=== PATIENT | female | born 1955 | race Caucasian/White ===

== ENCOUNTER 2021-09-27 19:34 | Inpatient (IN) | payer MEDICARE ==
[~2021-09-27] VITALS: Ht 172.7 cm; Wt 99.3 kg
[2021-09-27] MEDS ORDERED: ACETAMINOPHEN 650 MG SUPP.RECT. PR ONE (19:45)
[2021-09-27] MEDS ORDERED: IV NORMAL SALINE 1000ML BAG 1,000 ML IV ONE ×2 (19:45→20:15)
[2021-09-27 20:07] LABS: BASO % 0 % (0-3); EOS % 0 % (0-3); HEMATOCRIT 37.5 % (36.0-47.0); HEMOGLOBIN 12.7 g/dL (12.0-15.5); LYMPH % 5 % (24-48); MEAN CORPUSCULAR HEMOGLOBIN 28 pg (25-35); MEAN CORPUSCULAR HGB CONC 34 g/dL (31-37); MEAN CORPUSCULAR VOLUME 83 fL (79-100); MONO # 0.9 x10^3/uL (0.0-1.1); MONO % 4 % (0-9); NEUT # 19.3 x10^3/uL (1.8-7.7); NEUT % 91 % (31-73); PLATELET COUNT 291 x10^3/uL (140-400); RED BLOOD COUNT 4.51 x10^6/uL (3.50-5.40); RED CELL DISTRIBUTION WIDTH 15.1 % (11.5-14.5); WHITE BLOOD COUNT 21.2 x10^3/uL (4.0-11.0)
[2021-09-27] MEDS ORDERED: PIPERACILLIN/TAZOBACTAM 3.375 GM in IV NORMAL SALINE 50ML 50 ML IV ONE (20:15)
[2021-09-27] MEDS ORDERED: PIPERACILLIN/TAZOBACTAM 4.5 GM in IV NORMAL SALINE 100ML 100 ML IV ONE (20:15)
[2021-09-27] MEDS ORDERED: VANCOMYCIN PER PHARMACY MC PRN (20:15)
[2021-09-27 20:19] LABS: PROTHROMBIN TIME PATIENT 16.3 SEC (11.7-14.0)
[2021-09-27 20:27] LABS: ACETAMIN < 2 mcg/ml (10-30); SALIC 1.1 mg/dL (2.8-20.0)
[2021-09-27 20:28] LABS: ETHANOL < 10 mg/dL (0-10)
[2021-09-27 20:34] LABS: CALCIUM 9.1 mg/dL (8.5-10.1); CREATININE 0.8 mg/dL (0.6-1.0); POTASSIUM 3.6 mmol/L (3.5-5.1)
[2021-09-27 20:35] LABS: % BANDS 3 % (0-9); % LYMPHS 6 % (24-48); % MONOS 4 % (0-10); % SEGS 87 % (35-66); PLT ESTIMATE ADEQUATE (ADEQUATE); TOXIC GRANULATION SLIGHT
[2021-09-27 20:39] LABS: ALBUMIN 3.4 g/dL (3.4-5.0); ALBUMIN/GLOBULIN RATIO 0.9 (1.0-1.7); MAGNESIUM 2.2 mg/dL (1.8-2.4); PHOSPHORUS 3.6 mg/dL (2.6-4.7); TOTAL BILIRUBIN 0.5 mg/dL (0.2-1.0); TOTAL PROTEIN 7.4 g/dL (6.4-8.2)
[2021-09-27 20:40] LABS: BILIRUBIN,URINE NEGATIVE (NEG); CLARITY,URINE CLEAR; COLOR,URINE YELLOW; NITRITE,URINE NEGATIVE (NEG); PH,URINE 7.5 (<5.0-8.0); PROTEIN,URINE 30 mg/dL (NEG-TRACE)
--- NOTE | 2021-09-27 20:44 | RAD ---
Examination/views: Single view of the chest, 3 views of the left shoulder, 2 views of the left humeru s, 2 views of the left elbow, 2 views of the left forearm and 3 views of the left arm. COMPARISON: None. INDICATION: Altered mental status, left upper extremity rash FINDINGS: CHEST: Normal cardiomediastinal silhouette. Prominent bilateral shahnaz with cephalization of pulmonary vessels an increased bilateral perihilar reticulations. No sizable pleural effusion or pneumothorax. Loop recorder overlies left anterior chest wall. No acute osseous process. Partially visualized LAP-B AND in the left upper quadrant. Left shoulder: No acute fracture. Minimal displacement of the left humeral head increased soft tissue density in the joint space. No bone erosion or periosteal reaction. Diffuse soft tissue swelling in the left upper arm. Left humerus: No acute fracture. No bone erosion or periosteal reaction. Diffuse soft tissue swelling . Left elbow: No acute fracture, dislocation or subluxation. Diffuse soft tissue swelling. No elbow elizabeth nt effusion. Left forearm/left hand: No acute fracture, dislocation or subluxation. Chronic appearing healed dista l radial fracture. Nonunited chronic ulnar styloid fracture. Diffuse soft tissue swelling. IMPRESSION: 1. Findings suggesting of pulmonary vascular congestion, without overt edema. 2. No acute osseous process in the left shoulder, humerus, elbow, forearm or hand. 3. Minimally displaced left humeral head with increased density of the glenohumeral joint space, may relate to joint effusion or chronic process. 4. Diffuse soft tissue swelling of the left upper extremity. Electronically signed by: Graham Hadley MD (09/27/2021 8:41 PM) [facility]
[2021-09-27 20:47] LABS: BACTERIA,URINE MANY /HPF (0-FEW); WBC,URINE 20-40 /HPF (0-4)
[2021-09-27 20:48] LABS: BARBITURATES NEG (NEG); BENZODIAZEPINES NEG (NEG); CANNABINOIDS NEG (NEG); COCAINE NEG (NEG); METHADONE NEG (NEG); OPIATES NEG (NEG); PHENCYCLIDINE NEG (NEG)
[2021-09-27 20:50] LABS: AMPHETAMINE/METHAMPHETAMINE NEG (NEG)
[2021-09-27] MEDS ORDERED: VANCOMYCIN 2 GM in IV NORMAL SALINE 500ML BAG 500 ML IV ONE (21:00)
--- NOTE | 2021-09-27 21:35 | RAD ---
Exam: CT head INDICATION: Altered mental status TECHNIQUE: Sequential axial images through the head were obtained without the administration of IV co ntrast. Exposure: One or more of the following in the visualized dose reduction techniques were utilized for this examination: 1. Automated exposure control 2. Adjustment of the MA and/or KV according to patient size 3. Use of iterative of reconstructive technique Comparisons: None FINDINGS: No focal parenchymal lesion or hemorrhage is identified. There is no midline shift or sulcal effaceme nt. Moderate patchy hypodensity in the periventricular white matter. Lacunar infarct at the right basal g [place]. No acute vascular territory infarction is identified. Groves-white distinction is preserved. The ventricular system is within normal limits without compression hydrocephalus. The basal cisterns are well maintained. The visualized portions of the paranasal sinuses and mastoid air cells are well-pneumatized. No acute fractures. IMPRESSION: Moderate small vessel ischemic change and a lacunar infarct at the right basal ganglia. These are jj hnically age indeterminate without recent prior imaging. If there are concerns for acute ischemia MRI would better evaluate. Electronically signed by: Pamela Guerrero MD (09/27/2021 9:33 PM) [facility]
--- NOTE | 2021-09-27 21:37 | PHYS DOC ---
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 Pt bedbound and does not move her left side. EMS reports baseline is "A&0x3" although pt not speaking to them or myself. [facility] papers reviewed-they report aphasia. Review of Systems: Review of Systems: ROS: unable to be obtained due to mental status Heart Score: C/O Chest Pain: N/A Risk Factors: Risk Factors: DM, Current or recent (<one month) smoker, HTN, HLP, family history of CAD, obesity. Risk Scores: Score 0 - 3: 2.5% MACE over next 6 weeks - Discharge Home Score 4 - 6: 20.3% MACE over next 6 weeks - Admit for Clinical Observation Score 7 - 10: 72.7% MACE over next 6 weeks - Early Invasive Strategies Current Medications: Current Medications Medications (Trade) Dose Ordered Sig/Guillermo Start Time Stop Time Status Last Admin Dose Admin Acetaminophen (Tylenol Supp) 650 mg 1X ONCE 09/27/21 19:45 09/27/21 20:04 DC 09/27/21 19:58 650 MG Piperacillin Sod/ Tazobactam Sod 3.375 gm/Sodium Chloride 50 ml @ 100 mls/hr 1X ONCE 09/27/21 20:15 09/27/21 20:44 DC 09/27/21 20:24 100 MLS/HR Piperacillin Sod/ Tazobactam Sod 4.5 gm/Sodium Chloride 100 ml @ 200 mls/hr 1X ONCE 09/27/21 20:15 09/27/21 20:44 UNV Sodium Chloride 1,000 ml @ 1,000 mls/hr 1X ONCE 09/27/21 20:15 09/27/21 21:14 DC 09/27/21 20:53 1,000 MLS/HR Vancomycin HCl (Vanco Per Pharmacy) 1 each PRN DAILY PRN 09/27/21 20:15 Vancomycin HCl 2 gm/Sodium Chloride 500 ml @ 250 mls/hr 1X ONCE 09/27/21 21:00 09/27/21 22:59 09/27/21 20:53 250 MLS/HR Allergies: Allergies: Allergies Coded Allergies Type Severity Reaction Last Updated Verified codeine Allergy Intermediate 09/27/21 Yes morphine Allergy Intermediate 09/27/21 Yes Physical Exam: PE: Constitutional: flu-appearing, febrile, pulls my hand away with sternal rub HENT: Normocephalic, atraumatic, dry mucous membranes Eyes: EOMI, conjunctiva normal, no discharge. Neck: Normal range of motion, supple, Cardiovascular: S1/2 present, tachycardic Lungs & Thorax: bilateral equal chest rise, no tachypnea or increased work of br eathing Abdomen: soft, obese w/keloids Skin: Warm, dry, Extremities: flaccid left arm, no grimace when lifting up, erythema over dorsal aspect of arm, blood pooling in skin Neurologic: incomprehensible speech, alert, right gaze preference, Psychologic: No agitation, calm mood Current Patient Data: Labs: Laboratory Tests Test 09/27/21 19:55 09/27/21 20:33 White Blood Count 21.2 x10^3/uL (4.0-11.0) H Red Blood Count 4.51 x10^6/uL (3.50-5.40) Hemoglobin 12.7 g/dL (12.0-15.5) Hematocrit 37.5 % (36.0-47.0) Mean Corpuscular Volume 83 fL (79-100) Mean Corpuscular Hemoglobin 28 pg (25-35) Mean Corpuscular Hemoglobin Concent 34 g/dL (31-37) Red Cell Distribution Width 15.1 % (11.5-14.5) H Platelet Count 291 x10^3/uL (140-400) Neutrophils (%) (Auto) 91 % (31-73) H Lymphocytes (%) (Auto) 5 % (24-48) L Monocytes (%) (Auto) 4 % (0-9) Eosinophils (%) (Auto) 0 % (0-3) Basophils (%) (Auto) 0 % (0-3) Neutrophils # (Auto) 19.3 x10^3/uL (1.8-7.7) H Lymphocytes # (Auto) 1.0 x10^3/uL (1.0-4.8) Monocytes # (Auto) 0.9 x10^3/uL (0.0-1.1) Eosinophils # (Auto) 0.0 x10^3/uL (0.0-0.7) Basophils # (Auto) 0.0 x10^3/uL (0.0-0.2) Segmented Neutrophils % 87 % (35-66) H Band Neutrophils % 3 % (0-9) Lymphocytes % 6 % (24-48) L Monocytes % 4 % (0-10) Toxic Granulation Slight Platelet Estimate Adequate (ADEQUATE) Prothrombin Time 16.3 SEC (11.7-14.0) H Prothrombin Time INR 1.3 (0.8-1.1) H Activated Partial Thromboplast Time 37 SEC (24-38) Sodium Level 143 mmol/L (136-145) Potassium Level 3.6 mmol/L (3.5-5.1) Chloride Level 103 mmol/L (98-107) Carbon Dioxide Level 28 mmol/L (21-32) Anion Gap 12 (6-14) Blood Urea Nitrogen 29 mg/dL (7-20) H Creatinine 0.8 mg/dL (0.6-1.0) Estimated GFR (Cockcroft-Gault) 72.0 BUN/Creatinine Ratio 36 (6-20) H Glucose Level 157 mg/dL (70-99) H Lactic Acid Level 3.0 mmol/L (0.4-2.0) H Calcium Level 9.1 mg/dL (8.5-10.1) Phosphorus Level 3.6 mg/dL (2.6-4.7) Magnesium Level 2.2 mg/dL (1.8-2.4) Total Bilirubin 0.5 mg/dL (0.2-1.0) Aspartate Amino Transferase (AST) 17 U/L (15-37) Alanine Aminotransferase (ALT) 29 U/L (14-59) Alkaline Phosphatase 74 U/L (46-116) Creatine Kinase 82 U/L (26-192) Troponin I High Sensitivity 12 ng/L (4-50) MD-Bec-V-Type Natriuretic Peptide 166 pg/mL (0-124) H Total Protein 7.4 g/dL (6.4-8.2) Albumin 3.4 g/dL (3.4-5.0) Albumin/Globulin Ratio 0.9 (1.0-1.7) L Salicylates Level 1.1 mg/dL (2.8-20.0) L Salicylate Last Dose Date Unknown Salicylate Last Dose Time Unknown Acetaminophen Level < 2 mcg/ml (10-30) L Acetaminophen Last Dose Date Unknown Acetaminophen Last Dose Time Unknown Ethyl Alcohol Level < 10 mg/dL (0-10) Acetone Level Neg (NEG) Urine Collection Type U cath Urine Color Yellow Urine Clarity Clear Urine pH 7.5 (<5.0-8.0) Urine Specific [place] 1.015 (1.000-1.030) Urine Protein 30 mg/dL (NEG-TRACE) Urine Glucose (UA) Negative mg/dL (NEG) Urine Ketones (Stick) Negative mg/dL (NEG) Urine Blood Moderate (NEG) Urine Nitrite Negative (NEG) Urine Bilirubin Negative (NEG) Urine Urobilinogen Dipstick 1.0 mg/dL (0.2 mg/dL) Urine Leukocyte Esterase Large (NEG) Urine RBC 6-10 /HPF (0-2) Urine WBC 20-40 /HPF (0-4) Urine Squamous Epithelial Cells Occ /LPF Urine Bacteria Many /HPF (0-FEW) Urine Mucus Slight /LPF Urine Opiates Screen Neg (NEG) Urine Methadone Screen Neg (NEG) Urine Barbiturates Neg (NEG) Urine Phencyclidine Screen Neg (NEG) Urine Amphetamine/Methamphetamine Neg (NEG) Urine Benzodiazepines Screen Neg (NEG) Urine Cocaine Screen Neg (NEG) Urine Cannabinoids Screen Neg (NEG) Urine Ethyl Alcohol Neg (NEG) Laboratory Tests 09/27/21 19:55 Laboratory Tests 09/27/21 19:55 Vital Signs: Vital Signs Date Time Temp Pulse Resp B/P (MAP) Pulse Ox O2 Delivery O2 Flow Rate FiO2 09/27/21 19:34 101.2 109 24 99/59 (72) 93 Room Air 101.2 EKG: EKG: Sinus tachycardia 108 bpm, left axis deviation, T wave inversion V2, no ST elevation or ST depression Radiology/Procedures: Radiology/Procedures: []IMAGING REPORT Signed PATIENT: CONRADO LAWSON ACCOUNT: [id number] : 1955 LOCATION: ER AGE: 66 SEX: F EXAM STATUS: PRE ER ORD. PHYSICIAN: SHLOMO LANDAVERDE DO REASON: rash PROCEDURE: SHOULDER 2+V LEFT Examination/views: Single view of the chest, 3 views of the left shoulder, 2 views of the left humerus, 2 views of the left elbow, 2 views of the left forearm and 3 views of the left arm. COMPARISON: None. INDICATION: Altered mental status, left upper extremity rash FINDINGS: CHEST: Normal cardiomediastinal silhouette. Prominent bilateral shahnaz with cephalization of pulmonary vessels an increased bilateral perihilar reticulations. No sizable pleural effusion or pneumothorax. Loop recorder overlies left anterior chest wall. No acute osseous process. Partially visualized LAP-BAND in the left upper quadrant. Left shoulder: No acute fracture. Minimal displacement of the left humeral head increased soft tissue density in the joint space. No bone erosion or periosteal reaction. Diffuse soft tissue swelling in the left upper arm. Left humerus: No acute fracture. No bone erosion or periosteal reaction. Diffuse soft tissue swelling. Left elbow: No acute fracture, dislocation or subluxation. Diffuse soft tissue swelling. No elbow joint effusion. Left forearm/left hand: No acute fracture, dislocation or subluxation. Chronic appearing healed distal radial fracture. Nonunited chronic ulnar styloid fracture. Diffuse soft tissue swelling. IMPRESSION: 1. Findings suggesting of pulmonary vascular congestion, without overt edema. 2. No acute osseous process in the left shoulder, humerus, elbow, forearm or hand. 3. Minimally displaced left humeral head with increased density of the glenohumeral joint space, may relate to joint effusion or chronic process. 4. Diffuse soft tissue swelling of the left upper extremity. Electronically signed by: Hu Hadley MD (09/27/2021 8:41 PM) [facility] DICTATED and SIGNED BY: HU HADLEY MD DATE: 09/27/[id number] 0 IMAGING REPORT Signed PATIENT: CONRADO LAWSON ACCOUNT: [id number] : 1955 LOCATION: ER AGE: 66 SEX: F EXAM STATUS: REG ER ORD. PHYSICIAN: SHLOMO LANDAVERDE DO REASON: ams PROCEDURE: CT HEAD WO CONTRAST Exam: CT head INDICATION: Altered mental status TECHNIQUE: Sequential axial images through the head were obtained without the administration of IV contrast. Exposure: One or more of the following in the visualized dose reduction techniques were utilized for this examination: 1. Automated exposure control 2. Adjustment of the MA and/or KV according to patient size 3. Use of iterative of reconstructive technique Comparisons: None FINDINGS: No focal parenchymal lesion or hemorrhage is identified. There is no midline shift or sulcal effacement. Moderate patchy hypodensity in the periventricular white matter. Lacunar infarct at the right basal ganglia. No acute vascular territory infarction is identified. Groves-white distinction is preserved. The ventricular system is within normal limits without compression hydrocephalus. The basal cisterns are well maintained. The visualized portions of the paranasal sinuses and mastoid air cells are well- pneumatized. No acute fractures. IMPRESSION: Moderate small vessel ischemic change and a lacunar infarct at the right basal ganglia. These are technically age indeterminate without recent prior imaging. If there are concerns for acute ischemia MRI would better evaluate. Electronically signed by: Pamela Delarosa MD (09/27/2021 9:33 PM) [facility] DICTATED and SIGNED BY: PAMELA DELAROSA MD DATE: 09/27/[id number] 0 Course & Med Decision Making: Course & Med Decision Making Pertinent Labs and Imaging studies reviewed. (See chart for details) Concern for sepsis secondary to left arm cellulitis and UTI. Patient was started on broad-spectrum antibiotics. I suspect patient's left shoulder is chronic-patient in no discomfort when elevating the left arm. Will admit to medicine for further medical management. Dragon Disclaimer: Dragon Disclaimer: This electronic medical record was generated, in whole or in part, using a voice recognition dictation system. Departure Departure Impression: Primary Impression: Sepsis Additional Impressions: Cellulitis of arm, left UTI (urinary tract infection) Disposition: ADMITTED INPATIENT Admitting Physician: KAMRON (Dr. Loredo) Condition: GUARDED Referrals: LACEY WEBB MD (PCP) SHLOMO LANDAVERDE DO Sep 27, 2021 21:37
[2021-09-27 23:05] VITALS: BP 98/59
[2021-09-28] MEDS ORDERED: ACETAMINOPHEN 650 MG SUPP.RECT. PR PRN (00:30)
[2021-09-28] MEDS ORDERED: ONDANSETRON PF 4 MG/2 ML VIAL. IVP PRN ×2 (00:30→07:45)
--- NOTE | 2021-09-28 01:48 | EKG ---
[facility] [address] [place] [address] Test Date: 2021-09-27 Test Time: 19:46:39 Pat Name: CONRADO LAWSON Department: Room: 569 1 Gender: F Hr Intern: : 1955 Requested By: SHLOMO LANDAVERDE Order Number: [id number] Reading MD: Sohan Boyle Measurements Intervals [place] Rate: 108 P: 3 MI: 146 QRS: -2 QRSD: 86 T: 84 QT: 336 QTc: 454 Interpretive Statements SINUS TACHYCARDIA LEFTWARD AXIS LOW LIMB LEAD VOLTAGE NO SPECIFIC ECG ABNORMALITIES RI6.02 No previous ECG available for comparison Electronically Signed On 10-01-2021 9:44:19 ULTRASOUND TESTER by Sohan Boyle
--- NOTE | 2021-09-28 02:16 | NUR ---
Pharmacy Vancomycin Dosing Note S:Consulted to monitor and dose vancomycin started 09/27/21. O:CONRADO LAWSON is a 66 year old F with Cellulitis Sepsis UTI . Height: 5 feet, 8 inches Weight: 99.6 kg Ida Body Weight: 63.90 Adjusted Body Weight: 78.18 Dosing Weight: Actual Other Antibiotics: ZOSYN 1X ED LABS: Last BUN: 29 Last Creatinine: 0.8 Creatinine Clearance: 69 mL/min Last WBC: 21.2 Last Procalcitonin: Tmax (past 24 hours): Microbiology: I/O: Drug Levels: Last level: on at Last dose given 09/27/21 at 2100 Vancomycin Dosing: Loading Dose: 2000 mg x1 Dosing Weight: Actual Target Trough: 15-20 A: Based on: WT AND CRCL P: 1. Begin Vancomycin 1500 mg IV q12h 2. Follow up Trough level on 09/29/21 at 0830 3. Pharmacy will continue to monitor, follow and adjust therapy as needed. RAUL MOMIN RPH, 09/28/21215 Signed: 09/28/21 at 215 by RAUL MOMIN RPH PHA
[2021-09-28 03:00] VITALS: BP 134/66
[2021-09-28] MEDS ORDERED: LOPE2TAB27 PEG (04:55)
[2021-09-28] MEDS ORDERED: MULT-121 PEG (04:55)
[2021-09-28] MEDS ORDERED: ATOR40TA59 PEG (04:55)
[2021-09-28] MEDS ORDERED: ASPI-630 PEG (04:55)
[2021-09-28] MEDS ORDERED: APIX5TAB PEG (04:55)
[2021-09-28] MEDS ORDERED: OMEG10005 PEG (04:55)
[2021-09-28] MEDS ORDERED: INSU100I49 SQ (04:55)
[2021-09-28] MEDS ORDERED: CARV6.2511 PEG (04:55)
[2021-09-28] MEDS ORDERED: SERT25TA PEG (04:55)
[2021-09-28] MEDS ORDERED: FAMO-63 PEG (04:55)
[2021-09-28] MEDS ORDERED: AMLO-186 PEG (04:55)
[2021-09-28] MEDS ORDERED: INSU100V8 SQ (04:55)
[2021-09-28 07:00] VITALS: BP 106/61
[2021-09-28] MEDS ORDERED: ZOLPIDEM 5 MG TABLET. PO PRN (07:45)
[2021-09-28] MEDS ORDERED: PIP/TAZO PER PHARMACY MC PRN (07:45)
[2021-09-28] MEDS ORDERED: DOCUSATE SODIUM 100 MG CAPSULE. PO PRN (07:45)
[2021-09-28] MEDS ORDERED: SENNOSIDES 8.6 MG TABLET PO PRN (07:45)
[2021-09-28] MEDS ORDERED: PROCHLORPERAZINE 10 MG/2 ML VIAL. IV PRN (07:45)
[2021-09-28] MEDS ORDERED: DEXTROSE 50% 25 GM / 50ML DISP.SYRIN. IV PRN (07:45)
--- NOTE | 2021-09-28 08:00 | PDOC1 ---
History and Physical Date of Service: DOS: DATE: 09/28/21 TIME: 07:37 Chief Complaint: Chief Complain: Altered mental status. 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 Patient has difficulty communicating but is able to respond appropriately to some questioning. She only hip and buttock pain. No history of seizures or trauma to the head. Patient is not actively vomiting at this time. Brother who is did speak with neurology was not present at bedside a t this time. Past Medical/Surgical History: PMH/PSH: Past Medical Histor: SPONDYLOSIS, DYSPHAGIA, APHASIA, HEMIPLEGIA, HEMIPARESIS, VENOUS THROMBOSIS Past Surgical History: G TUBE Allergies: Allergies: Coded Allergies: codeine (Verified Allergy, Intermediate, 09/27/21) morphine (Verified Allergy, Intermediate, 09/27/21) Family History: Family History: Reviewed with no relevant findings Social History: Social History: Smoking Status: Unknown if ever smoked Alcohol Use: None Current Medications: Current Medications Current Medications Acetaminophen (Tylenol Supp) 650 mg 1X ONCE LA Last administered on 09/27/21at 19:58; Start 09/27/21 at 19:45; Stop 09/27/21 at 20:04; Status DC Sodium Chloride 1,000 ml @ 1,000 mls/hr 1X ONCE IV Last administered on 09/27/21at 19:58; Start 09/27/21 at 19:45; Stop 09/27/21 at 20:44; Status DC Piperacillin Sod/ Tazobactam Sod 4.5 gm/Sodium Chloride 100 ml @ 200 mls/hr 1X ONCE IV ; Start 09/27/21 at 20:15; Stop 09/27/21 at 20:44; Status UNV Vancomycin HCl (Vanco Per Pharmacy) 1 each PRN DAILY PRN MC SEE COMMENTS Last administered on 09/28/21at 02:16; Start 09/27/21 at 20:15 Sodium Chloride 1,000 ml @ 1,000 mls/hr 1X ONCE IV Last administered on 09/27/21at 20:53; Start 09/27/21 at 20:15; Stop 09/27/21 at 21:43; Status DC Piperacillin Sod/ Tazobactam Sod 3.375 gm/Sodium Chloride 50 ml @ 100 mls/hr 1X ONCE IV Last administered on 09/27/21at 20:24; Start 09/27/21 at 20:15; Stop 09/27/21 at 20:44; Status DC Vancomycin HCl 2 gm/Sodium Chloride 500 ml @ 250 mls/hr 1X ONCE IV Last adm inistered on 09/27/21at 20:53; Start 09/27/21 at 21:00; Stop 09/27/21 at 22:59; Status DC Vancomycin HCl 1.5 gm/Sodium Chloride 500 ml @ 250 mls/hr Q12H IV ; Start 09/28/21 at 09:00 Vancomycin HCl (Vancomycin Trough Level) 1 each 1X ONCE MC ; Start 09/29/21 at 08:30; Stop 09/29/21 at 08:31 Acetaminophen (Tylenol Supp) 650 mg PRN Q4HRS PRN LA MILD PAIN / TEMP > 100.3'F; Start 09/28/21 at 00:30 Ondansetron HCl (Zofran) 4 mg PRN Q6HRS PRN IVP NAUSEA/VOMITING 1ST CHOICE; Start 09/28/21 at 00:30 Active Scripts Active Reported Zoloft (Sertraline Hcl) 25 Mg Tablet 1 Tab PEG DAILY Pepcid (Famotidine) 20 Mg Tablet 20 Mg PEG HS Novolin R Flexpen (Insulin Regular, Human) 100 Unit/1 Ml Insuln.pen 16 Unit SQ TID Multiple Vitamins (Multivitamin) 1 Each Tablet 1 Tab PEG DAILY 30 Days Loperamide (Loperamide Hcl) 2 Mg Tablet 2 Mg PEG DAILYWBKFT Lantus (Insulin Glargine,Hum.rec.anlog) 100 Unit/1 Ml Vial 20 Unit SQ QHS Anna-3 (Anna-3 Fatty Acids) 1,000 Mg Capsule 1 Cap PEG TID 30 Days Eliquis (Apixaban) 5 Mg Tablet 5 Mg PEG BID Carvedilol (Carvedilol) 6.25 Mg Tablet 6.25 Mg PEG BIDWMEALS Atorvastatin Calcium 40 Mg Tablet 1 Tab PEG DAILY Aspirin 81 Mg Tab.chew 1 Tab PEG DAILY Amlodipine Besylate 5 Mg Tablet 5 Mg PEG DAILY ROS: Review of Systems Review of System Unable to obtain due to altered mental status Physical Exam: Vital Signs: Vital Signs Date Time Temp Pulse Resp B/P (MAP) Pulse Ox O2 Delivery O2 Flow Rate FiO2 09/28/21 05:15 Room Air 09/28/21 03:00 100.4 96 18 134/66 (88) 96 100.4 Physcial Exam: General: Ill-appearing and febrile. Responds to pain appropriately with sternal rub. HEENT: Pupils equally round and reactive to light, EOMI, no discharge, normal conjunctiva Neck: Supple, no nuchal rigidity, no JVD, trachea midline, no tenderness Cardiac: RRR, no murmurs, no gallops, no rubs Chest/Lungs: CTAB, no wheeze, no rhonchi, no crackles Abdomen: soft, non-distended, no guarding, no peritoneal signs, non-tender Back: No tenderness Extremities: Left sided hemiparesis flaccid left arm and there is erythema over the dorsal aspect of the left arm Neuro: Alert and oriented x 4, no focal deficits, normal speech Labs: Labs: Laboratory Tests Test 09/27/21 19:55 09/27/21 20:33 09/27/21 23:15 09/28/21 05:32 White Blood Count 21.2 x10^3/uL (4.0-11.0) Red Blood Count 4.51 x10^6/uL (3.50-5.40) Hemoglobin 12.7 g/dL (12.0-15.5) Hematocrit 37.5 % (36.0-47.0) Mean Corpuscular Volume 83 fL (79-100) Mean Corpuscular Hemoglobin 28 pg (25-35) Mean Corpuscular Hemoglobin Concent 34 g/dL (31-37) Red Cell Distribution Width 15.1 % (11.5-14.5) Platelet Count 291 x10^3/uL (140-400) Neutrophils (%) (Auto) 91 % (31-73) Lymphocytes (%) (Auto) 5 % (24-48) Monocytes (%) (Auto) 4 % (0-9) Eosinophils (%) (Auto) 0 % (0-3) Basophils (%) (Auto) 0 % (0-3) Neutrophils # (Auto) 19.3 x10^3/uL (1.8-7.7) Lymphocytes # (Auto) 1.0 x10^3/uL (1.0-4.8) Monocytes # (Auto) 0.9 x10^3/uL (0.0-1.1) Eosinophils # (Auto) 0.0 x10^3/uL (0.0-0.7) Basophils # (Auto) 0.0 x10^3/uL (0.0-0.2) Segmented Neutrophils % 87 % (35-66) Band Neutrophils % 3 % (0-9) Lymphocytes % 6 % (24-48) Monocytes % 4 % (0-10) Toxic Granulation Slight Platelet Estimate Adequate (ADEQUATE) Prothrombin Time 16.3 SEC (11.7-14.0) Prothromb Time International Ratio 1.3 (0.8-1.1) Activated Partial Thromboplast Time 37 SEC (24-38) Sodium Level 143 mmol/L (136-145) Potassium Level 3.6 mmol/L (3.5-5.1) Chloride Level 103 mmol/L (98-107) Carbon Dioxide Level 28 mmol/L (21-32) Anion Gap 12 (6-14) Blood Urea Nitrogen 29 mg/dL (7-20) Creatinine 0.8 mg/dL (0.6-1.0) Estimated GFR (Cockcroft-Gault) 72.0 BUN/Creatinine Ratio 36 (6-20) Glucose Level 157 mg/dL (70-99) Lactic Acid Level 3.0 mmol/L (0.4-2.0) 1.7 mmol/L (0.4-2.0) Calcium Level 9.1 mg/dL (8.5-10.1) Phosphorus Level 3.6 mg/dL (2.6-4.7) Magnesium Level 2.2 mg/dL (1.8-2.4) Total Bilirubin 0.5 mg/dL (0.2-1.0) Aspartate Amino Transf (AST/SGOT) 17 U/L (15-37) Alanine Aminotransferase (ALT/SGPT) 29 U/L (14-59) Alkaline Phosphatase 74 U/L (46-116) Creatine Kinase 82 U/L (26-192) Troponin I High Sensitivity 12 ng/L (4-50) QC-Cas-X-Type Natriuretic Peptide 166 pg/mL (0-124) Total Protein 7.4 g/dL (6.4-8.2) Albumin 3.4 g/dL (3.4-5.0) Albumin/Globulin Ratio 0.9 (1.0-1.7) Salicylates Level 1.1 mg/dL (2.8-20.0) Salicylate Last Dose Date Unknown Salicylate Last Dose Time Unknown Acetaminophen Level < 2 mcg/ml (10-30) Acetaminophen Last Dose Date Unknown Acetaminophen Last Dose Time Unknown Ethyl Alcohol Level < 10 mg/dL (0-10) Acetone Level Neg (NEG) Urine Collection Type U cath Urine Color Yellow Urine Clarity Clear Urine pH 7.5 (<5.0-8.0) Urine Specific [place] 1.015 (1.000-1.030) Urine Protein 30 mg/dL (NEG-TRACE) Urine Glucose (UA) Negative mg/dL (NEG) Urine Ketones (Stick) Negative mg/dL (NEG) Urine Blood Moderate (NEG) Urine Nitrite Negative (NEG) Urine Bilirubin Negative (NEG) Urine Urobilinogen Dipstick 1.0 mg/dL (0.2 mg/dL) Urine Leukocyte Esterase Large (NEG) Urine RBC 6-10 /HPF (0-2) Urine WBC 20-40 /HPF (0-4) Urine Squamous Epithelial Cells Occ /LPF Urine Bacteria Many /HPF (0-FEW) Urine Mucus Slight /LPF Urine Opiates Screen Neg (NEG) Urine Methadone Screen Neg (NEG) Urine Barbiturates Neg (NEG) Urine Phencyclidine Screen Neg (NEG) Urine Amphetamine/Methamphetamine Neg (NEG) Urine Benzodiazepines Screen Neg (NEG) Urine Cocaine Screen Neg (NEG) Urine Cannabinoids Screen Neg (NEG) Urine Ethyl Alcohol Neg (NEG) Glucose (Fingerstick) 96 mg/dL (70-99) Laboratory Tests Test 09/27/21 19:55 09/27/21 20:33 09/27/21 23:15 09/28/21 05:32 White Blood Count 21.2 x10^3/uL (4.0-11.0) Red Blood Count 4.51 x10^6/uL (3.50-5.40) Hemoglobin 12.7 g/dL (12.0-15.5) Hematocrit 37.5 % (36.0-47.0) Mean Corpuscular Volume 83 fL (79-100) Mean Corpuscular Hemoglobin 28 pg (25-35) Mean Corpuscular Hemoglobin Concent 34 g/dL (31-37) Red Cell Distribution Width 15.1 % (11.5-14.5) Platelet Count 291 x10^3/uL (140-400) Neutrophils (%) (Auto) 91 % (31-73) Lymphocytes (%) (Auto) 5 % (24-48) Monocytes (%) (Auto) 4 % (0-9) Eosinophils (%) (Auto) 0 % (0-3) Basophils (%) (Auto) 0 % (0-3) Neutrophils # (Auto) 19.3 x10^3/uL (1.8-7.7) Lymphocytes # (Auto) 1.0 x10^3/uL (1.0-4.8) Monocytes # (Auto) 0.9 x10^3/uL (0.0-1.1) Eosinophils # (Auto) 0.0 x10^3/uL (0.0-0.7) Basophils # (Auto) 0.0 x10^3/uL (0.0-0.2) Segmented Neutrophils % 87 % (35-66) Band Neutrophils % 3 % (0-9) Lymphocytes % 6 % (24-48) Monocytes % 4 % (0-10) Toxic Granulation Slight Platelet Estimate Adequate (ADEQUATE) Prothrombin Time 16.3 SEC (11.7-14.0) Prothromb Time International Ratio 1.3 (0.8-1.1) Activated Partial Thromboplast Time 37 SEC (24-38) Sodium Level 143 mmol/L (136-145) Potassium Level 3.6 mmol/L (3.5-5.1) Chloride Level 103 mmol/L (98-107) Carbon Dioxide Level 28 mmol/L (21-32) Anion Gap 12 (6-14) Blood Urea Nitrogen 29 mg/dL (7-20) Creatinine 0.8 mg/dL (0.6-1.0) Estimated GFR (Cockcroft-Gault) 72.0 BUN/Creatinine Ratio 36 (6-20) Glucose Level 157 mg/dL (70-99) Lactic Acid Level 3.0 mmol/L (0.4-2.0) 1.7 mmol/L (0.4-2.0) Calcium Level 9.1 mg/dL (8.5-10.1) Phosphorus Level 3.6 mg/dL (2.6-4.7) Magnesium Level 2.2 mg/dL (1.8-2.4) Total Bilirubin 0.5 mg/dL (0.2-1.0) Aspartate Amino Transf (AST/SGOT) 17 U/L (15-37) Alanine Aminotransferase (ALT/SGPT) 29 U/L (14-59) Alkaline Phosphatase 74 U/L (46-116) Creatine Kinase 82 U/L (26-192) Troponin I High Sensitivity 12 ng/L (4-50) LK-Mub-U-Type Natriuretic Peptide 166 pg/mL (0-124) Total Protein 7.4 g/dL (6.4-8.2) Albumin 3.4 g/dL (3.4-5.0) Albumin/Globulin Ratio 0.9 (1.0-1.7) Salicylates Level 1.1 mg/dL (2.8-20.0) Salicylate Last Dose Date Unknown Salicylate Last Dose Time Unknown Acetaminophen Level < 2 mcg/ml (10-30) Acetaminophen Last Dose Date Unknown Acetaminophen Last Dose Time Unknown Ethyl Alcohol Level < 10 mg/dL (0-10) Acetone Level Neg (NEG) Urine Collection Type U cath Urine Color Yellow Urine Clarity Clear Urine pH 7.5 (<5.0-8.0) Urine Specific [place] 1.015 (1.000-1.030) Urine Protein 30 mg/dL (NEG-TRACE) Urine Glucose (UA) Negative mg/dL (NEG) Urine Ketones (Stick) Negative mg/dL (NEG) Urine Blood Moderate (NEG) Urine Nitrite Negative (NEG) Urine Bilirubin Negative (NEG) Urine Urobilinogen Dipstick 1.0 mg/dL (0.2 mg/dL) Urine Leukocyte Esterase Large (NEG) Urine RBC 6-10 /HPF (0-2) Urine WBC 20-40 /HPF (0-4) Urine Squamous Epithelial Cells Occ /LPF Urine Bacteria Many /HPF (0-FEW) Urine Mucus Slight /LPF Urine Opiates Screen Neg (NEG) Urine Methadone Screen Neg (NEG) Urine Barbiturates Neg (NEG) Urine Phencyclidine Screen Neg (NEG) Urine Amphetamine/Methamphetamine Neg (NEG) Urine Benzodiazepines Screen Neg (NEG) Urine Cocaine Screen Neg (NEG) Urine Cannabinoids Screen Neg (NEG) Urine Ethyl Alcohol Neg (NEG) Glucose (Fingerstick) 96 mg/dL (70-99) Images: Images PROCEDURE: CT HEAD WO CONTRAST IMPRESSION: Moderate small vessel ischemic change and a lacunar infarct at the right basal ganglia. These are technically age indeterminate without recent prior imaging. If there are concerns for acute ischemia MRI would better evaluate. PROCEDURE: PORTABLE CHEST 1V Examination/views: Single view of the chest, 3 views of the left shoulder, 2 views of the left humerus, 2 views of the left elbow, 2 views of the left forearm and 3 views of the left arm. COMPARISON: None. INDICATION: Altered mental status, left upper extremity rash FINDINGS: CHEST: Normal cardiomediastinal silhouette. Prominent bilateral shahnaz with cephalization of pulmonary vessels an increased bilateral perihilar reticulations. No sizable pleural effusion or pneumothorax. Loop recorder overlies left anterior chest wall. No acute osseous process. Partially visualized LAP-BAND in the left upper quadrant. Left shoulder: No acute fracture. Minimal displacement of the left humeral head increased soft tissue density in the joint space. No bone erosion or periosteal reaction. Diffuse soft tissue swelling in the left upper arm. Left humerus: No acute fracture. No bone erosion or periosteal reaction. Diffuse soft tissue swelling. Left elbow: No acute fracture, dislocation or subluxation. Diffuse soft tissue swelling. No elbow joint effusion. Left forearm/left hand: No acute fracture, dislocation or subluxation. Chronic appearing healed distal radial fracture. Nonunited chronic ulnar styloid fracture. Diffuse soft tissue swelling. IMPRESSION: 1. Findings suggesting of pulmonary vascular congestion, without overt edema. 2. No acute osseous process in the left shoulder, humerus, elbow, forearm or hand. 3. Minimally displaced left humeral head with increased density of the glenohumeral joint space, may relate to joint effusion or chronic process. 4. Diffuse soft tissue swelling of the left upper extremity. Assessment/Plan Assessment/Plan Sepsis Acute infectious and metabolic encephalopathy Moderate small vessel ischemic change and a lacunar infarct at the right basal ganglia. Acute UTI Prerenal azotemia Lactic acidemia Risk for aspiration History of stroke and residual left hemiparesis History of PEG tube placement Failure to thrive Admit to hospitalist for further management Start empiric IV antibiotics ID consult for antibiotic management Neurology consult for lacunar infarct and stroke work-up Pending blood and urine cultures Continue IV fluids PT/OT/speech modalities Lovenox for DVT prophylaxis Protonix GI prophylaxis N.p.o. CODE STATUS full code Discussed with RN and SW Disposition inpatient management as above DPOA: Isaak Pham Justifications for Admission Other Justification REYES MARQUES MD Sep 28, 2021 08:00
[2021-09-28] MEDS ORDERED: VANCOMYCIN 1.5 GM in IV NORMAL SALINE 500ML BAG 500 ML IV SCH (09:00)
[2021-09-28] MEDS: ENOXAPARIN 40 MG/0.4 ML SYRINGE. SQ SCH (10:17)
[2021-09-28] MEDS: PIPERACILLIN/TAZOBACTAM 3.375 GM in IV NORMAL SALINE 50ML 50 ML IV SCH ×4 (10:18→23:40)
[2021-09-28 11:00] VITALS: BP 112/57
--- NOTE | 2021-09-28 11:07 | NUR ---
SW following. Discussed with RN. 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 No need for therapy, pt is at baseline and essentially total care at the facility. RN notified of need for COVID test prior to return to facility. SW will continue to follow.
--- NOTE | 2021-09-28 12:29 | PDOC2 ---
NEUROLOGY CONSULT Date of Service DOS: DATE: 09/28/21 TIME: 12:16 Reason for Consult Reason for Consult: Right basal ganglia stroke Referring Physician Referring Physician: Dr. Mendez Source Source: Caregiver (Son), Chart review, Patient (Limited information) History of Present Illness History of Present Illness The patient is a 66-year-old right-handed female skilled nursing resident brought in by emergency medical services for fever, vomiting, possible aspiration. According the patient's son, she had a stroke 6 months ago while living in [place] leaving her with severe dysphagia requiring a PEG and left hemiplegia. She never got to go home. About 6 years ago she had a spell of facial numbness and tremulousness but never went to the hospital get worked up. In general, she is in the bed, unable to eat, unable to move the left side, she has language difficulties but is able to communicate some. She complains of chronic hip and buttock pain. She has not had any full-blown seizures and there is no history of head injury. She has had no more nausea and vomiting today. Past Medical History Cardiovascular: HTN, Hyperlipidemia, Other (DVD) CENTRAL NERVOUS SYSTEM: CVA GI: GERD Musculoskeletal: low back pain (Lumbar spondylosis) Past Surgical History Past Surgical History: Other (Head) Family History Family History: No pertinent hx Social History Social History , no alcohol or tobacco Current Medications Current Medications Current Medications Acetaminophen (Tylenol Supp) 650 mg 1X ONCE GA Last administered on 09/27/21at 19:58; Start 09/27/21 at 19:45; Stop 09/27/21 at 20:04; Status DC Sodium Chloride 1,000 ml @ 1,000 mls/hr 1X ONCE IV Last administered on 09/27/21at 19:58; Start 09/27/21 at 19:45; Stop 09/27/21 at 20:44; Status DC Piperacillin Sod/ Tazobactam Sod 4.5 gm/Sodium Chloride 100 ml @ 200 mls/hr 1X ONCE IV ; Start 09/27/21 at 20:15; Stop 09/27/21 at 20:44; Status UNV Vancomycin HCl (Vanco Per Pharmacy) 1 each PRN DAILY PRN MC SEE COMMENTS Last administered on 09/28/21at 02:16; Start 09/27/21 at 20:15 Sodium Chloride 1,000 ml @ 1,000 mls/hr 1X ONCE IV Last administered on 09/27/21at 20:53; Start 09/27/21 at 20:15; Stop 09/27/21 at 21:43; Status DC Piperacillin Sod/ Tazobactam Sod 3.375 gm/Sodium Chloride 50 ml @ 100 mls/hr 1X ONCE IV Last administered on 09/27/21at 20:24; Start 09/27/21 at 20:15; Stop 09/27/21 at 20:44; Status DC Vancomycin HCl 2 gm/Sodium Chloride 500 ml @ 250 mls/hr 1X ONCE IV Last administered on 09/27/21at 20:53; Start 09/27/21 at 21:00; Stop 09/27/21 at 22:59; Status DC Vancomycin HCl 1.5 gm/Sodium Chloride 500 ml @ 250 mls/hr Q12H IV ; Start 09/28/21 at 09:00 Vancomycin HCl (Vancomycin Trough Level) 1 each 1X ONCE MC ; Start 09/29/21 at 08:30; Stop 09/29/21 at 08:31 Acetaminophen (Tylenol Supp) 650 mg PRN Q4HRS PRN GA MILD PAIN / TEMP > 100.3'F; Start 09/28/21 at 00:30 Ondansetron HCl (Zofran) 4 mg PRN Q6HRS PRN IVP NAUSEA/VOMITING 1ST CHOICE; Start 09/28/21 at 00:30; Status Cancel Piperacillin Sod/ Tazobactam Sod (Zosyn Per Pharmacy) 1 each PRN DAILY PRN MC SEE COMMENTS; Start 09/28/21 at 07:45 Sennosides (Senna) 17.2 mg PRN BID PRN PO CONSTIPATION; Start 09/28/21 at 07:45 Docusate Sodium (Colace) 100 mg PRN DAILY PRN PO HARD STOOLS; Start 09/28/21 at 07:45 Ondansetron HCl (Zofran) 4 mg PRN Q6HRS PRN IVP NAUSEA/VOMITING; Start 09/28/21 at 07:45 Dextrose (Dextrose 50%-Water Syringe) 12.5 gm PRN Q15MIN PRN IV SEE COMMENTS; Start 09/28/21 at 07:45 Sodium Chloride 1,000 ml @ 100 mls/hr Q10H IV ; Start 09/28/21 at 07:45 Acetaminophen (Tylenol) 650 mg PRN Q4HRS PRN PO TEMP OVER 100.4F OR MILD PAIN; Start 09/28/21 at 07:45 Lorazepam (Ativan) 0.5 mg PRN Q6HRS PRN PO ANXIETY / AGITATION; Start 09/28/21 at 07:45 Lorazepam (Ativan Inj) 0.25 mg PRN Q4HRS PRN IV ANXIETY / AGITATION; Start 09/28/21 at 07:45 Enoxaparin Sodium (Lovenox 40mg Syringe) 40 mg Q24H SQ Last administered on 09/28/21at 10:17; Start 09/28/21 at 08:00 Prochlorperazine Edisylate (Compazine) 10 mg PRN Q6HRS PRN IV NAUSEA/VOMITING- 2ND CHOICE; Start 09/28/21 at 07:45 Zolpidem Tartrate (Ambien) 2.5 mg PRN QHS PRN PO INSOMNIA; Start 09/28/21 at 07:45 Piperacillin Sod/ Tazobactam Sod 3.375 gm/Sodium Chloride 50 ml @ 100 mls/hr Q6HRS IV Last administered on 09/28/21at 10:18; Start 09/28/21 at 08:00 Active Scripts Active Reported Zoloft (Sertraline Hcl) 25 Mg Tablet 1 Tab PEG DAILY Pepcid (Famotidine) 20 Mg Tablet 20 Mg PEG HS Novolin R Flexpen (Insulin Regular, Human) 100 Unit/1 Ml Insuln.pen 16 Unit SQ TID Multiple Vitamins (Multivitamin) 1 Each Tablet 1 Tab PEG DAILY 30 Days Loperamide (Loperamide Hcl) 2 Mg Tablet 2 Mg PEG DAILYWBKFT Lantus (Insulin Glargine,Hum.rec.anlog) 100 Unit/1 Ml Vial 20 Unit SQ QHS [place]-3 ([place]-3 Fatty Acids) 1,000 Mg Capsule 1 Cap PEG TID 30 Days Eliquis (Apixaban) 5 Mg Tablet 5 Mg PEG BID Carvedilol (Carvedilol) 6.25 Mg Tablet 6.25 Mg PEG BIDWMEALS Atorvastatin Calcium 40 Mg Tablet 1 Tab PEG DAILY Aspirin 81 Mg Tab.chew 1 Tab PEG DAILY Amlodipine Besylate 5 Mg Tablet 5 Mg PEG DAILY Allergies Allergies: Coded Allergies: codeine (Verified Allergy, Intermediate, 09/27/21) morphine (Verified Allergy, Intermediate, 09/27/21) ROS Review of System Negative for fever, chills, weight loss, shortness of breath, chest pain, indigestion, hematochezia, melena, and dysuria. Full 14-point review of systems is negative. Physical Exam Physical Examination General: Well-developed, well-nourished, white female, in no acute distress HEENT: Normocephalic andatraumatic. Temporal arteriespulsatile and nontender. Neck: Supple without bruit, no meningismus Musculoskeletal: Stability:see neurologic. Gait exam:see neurologic. Tone:see neurologic.St rength:see neurologic. Neurological: Mental Status:orientation, memory, attention span/concentration, language, fund of knowledge: Opens her eyes to voice, can follow a few commands, able to tell me that she has some pain in her hip, speech is dysarthric, poor naming and repetition. Cranial Nerves:Pupils equal and reactive to light, extraocular movements areintact, visual lo are full to confrontation. Facial sensation is normal. There is a left central facial weakness. Vestibulo-ocular reflex is intact. Palate elevates and tongue protrudes in midline. All other cranial related problems are negative except as mentioned before.Reflexes:2+ and symmetric with extensor plantar response on the left and flexor on the right. Motor:Spastic left hemiplegia, right-sided strength is 3/5. Coordination and gait:Not cooperative. Sensory:Responds to pinprick in all 4 extremities. Vitals VITALS Vital Signs Date Time Temp Pulse Resp B/P (MAP) Pulse Ox O2 Delivery O2 Flow Rate FiO2 09/28/21 11:00 98.8 94 18 112/57 (75) 94 Room Air 98.8 Labs Labs Laboratory Tests Test 09/27/21 19:55 09/27/21 20:33 09/27/21 23:15 09/28/21 05:32 White Blood Count 21.2 x10^3/uL (4.0-11.0) Red Blood Count 4.51 x10^6/uL (3.50-5.40) Hemoglobin 12.7 g/dL (12.0-15.5) Hematocrit 37.5 % (36.0-47.0) Mean Corpuscular Volume 83 fL (79-100) Mean Corpuscular Hemoglobin 28 pg (25-35) Mean Corpuscular Hemoglobin Concent 34 g/dL (31-37) Red Cell Distribution Width 15.1 % (11.5-14.5) Platelet Count 291 x10^3/uL (140-400) Neutrophils (%) (Auto) 91 % (31-73) Lymphocytes (%) (Auto) 5 % (24-48) Monocytes (%) (Auto) 4 % (0-9) Eosinophils (%) (Auto) 0 % (0-3) Basophils (%) (Auto) 0 % (0-3) Neutrophils # (Auto) 19.3 x10^3/uL (1.8-7.7) Lymphocytes # (Auto) 1.0 x10^3/uL (1.0-4.8) Monocytes # (Auto) 0.9 x10^3/uL (0.0-1.1) Eosinophils # (Auto) 0.0 x10^3/uL (0.0-0.7) Basophils # (Auto) 0.0 x10^3/uL (0.0-0.2) Segmented Neutrophils % 87 % (35-66) Band Neutrophils % 3 % (0-9) Lymphocytes % 6 % (24-48) Monocytes % 4 % (0-10) Toxic Granulation Slight Platelet Estimate Adequate (ADEQUATE) Prothrombin Time 16.3 SEC (11.7-14.0) Prothromb Time International Ratio 1.3 (0.8-1.1) Activated Partial Thromboplast Time 37 SEC (24-38) Sodium Level 143 mmol/L (136-145) Potassium Level 3.6 mmol/L (3.5-5.1) Chloride Level 103 mmol/L (98-107) Carbon Dioxide Level 28 mmol/L (21-32) Anion Gap 12 (6-14) Blood Urea Nitrogen 29 mg/dL (7-20) Creatinine 0.8 mg/dL (0.6-1.0) Estimated GFR (Cockcroft-Gault) 72.0 BUN/Creatinine Ratio 36 (6-20) Glucose Level 157 mg/dL (70-99) Lactic Acid Level 3.0 mmol/L (0.4-2.0) 1.7 mmol/L (0.4-2.0) Calcium Level 9.1 mg/dL (8.5-10.1) Phosphorus Level 3.6 mg/dL (2.6-4.7) Magnesium Level 2.2 mg/dL (1.8-2.4) Total Bilirubin 0.5 mg/dL (0.2-1.0) Aspartate Amino Transf (AST/SGOT) 17 U/L (15-37) Alanine Aminotransferase (ALT/SGPT) 29 U/L (14-59) Alkaline Phosphatase 74 U/L (46-116) Creatine Kinase 82 U/L (26-192) Troponin I High Sensitivity 12 ng/L (4-50) OS-Lus-P-Type Natriuretic Peptide 166 pg/mL (0-124) Total Protein 7.4 g/dL (6.4-8.2) Albumin 3.4 g/dL (3.4-5.0) Albumin/Globulin Ratio 0.9 (1.0-1.7) Salicylates Level 1.1 mg/dL (2.8-20.0) Salicylate Last Dose Date Unknown Salicylate Last Dose Time Unknown Acetaminophen Level < 2 mcg/ml (10-30) Acetaminophen Last Dose Date Unknown Acetaminophen Last Dose Time Unknown Ethyl Alcohol Level < 10 mg/dL (0-10) Acetone Level Neg (NEG) Urine Collection Type U cath Urine Color Yellow Urine Clarity Clear Urine pH 7.5 (<5.0-8.0) Urine Specific [place] 1.015 (1.000-1.030) Urine Protein 30 mg/dL (NEG-TRACE) Urine Glucose (UA) Negative mg/dL (NEG) Urine Ketones (Stick) Negative mg/dL (NEG) Urine Blood Moderate (NEG) Urine Nitrite Negative (NEG) Urine Bilirubin Negative (NEG) Urine Urobilinogen Dipstick 1.0 mg/dL (0.2 mg/dL) Urine Leukocyte Esterase Large (NEG) Urine RBC 6-10 /HPF (0-2) Urine WBC 20-40 /HPF (0-4) Urine Squamous Epithelial Cells Occ /LPF Urine Bacteria Many /HPF (0-FEW) Urine Mucus Slight /LPF Urine Opiates Screen Neg (NEG) Urine Methadone Screen Neg (NEG) Urine Barbiturates Neg (NEG) Urine Phencyclidine Screen Neg (NEG) Urine Amphetamine/Methamphetamine Neg (NEG) Urine Benzodiazepines Screen Neg (NEG) Urine Cocaine Screen Neg (NEG) Urine Cannabinoids Screen Neg (NEG) Urine Ethyl Alcohol Neg (NEG) Glucose (Fingerstick) 96 mg/dL (70-99) Test 09/28/21 11:29 Glucose (Fingerstick) 105 mg/dL (70-99) Laboratory Tests Test 09/27/21 19:55 09/27/21 20:33 09/27/21 23:15 09/28/21 05:32 White Blood Count 21.2 x10^3/uL (4.0-11.0) Red Blood Count 4.51 x10^6/uL (3.50-5.40) Hemoglobin 12.7 g/dL (12.0-15.5) Hematocrit 37.5 % (36.0-47.0) Mean Corpuscular Volume 83 fL (79-100) Mean Corpuscular Hemoglobin 28 pg (25-35) Mean Corpuscular Hemoglobin Concent 34 g/dL (31-37) Red Cell Distribution Width 15.1 % (11.5-14.5) Platelet Count 291 x10^3/uL (140-400) Neutrophils (%) (Auto) 91 % (31-73) Lymphocytes (%) (Auto) 5 % (24-48) Monocytes (%) (Auto) 4 % (0-9) Eosinophils (%) (Auto) 0 % (0-3) Basophils (%) (Auto) 0 % (0-3) Neutrophils # (Auto) 19.3 x10^3/uL (1.8-7.7) Lymphocytes # (Auto) 1.0 x10^3/uL (1.0-4.8) Monocytes # (Auto) 0.9 x10^3/uL (0.0-1.1) Eosinophils # (Auto) 0.0 x10^3/uL (0.0-0.7) Basophils # (Auto) 0.0 x10^3/uL (0.0-0.2) Segmented Neutrophils % 87 % (35-66) Band Neutrophils % 3 % (0-9) Lymphocytes % 6 % (24-48) Monocytes % 4 % (0-10) Toxic Granulation Slight Platelet Estimate Adequate (ADEQUATE) Prothrombin Time 16.3 SEC (11.7-14.0) Prothromb Time International Ratio 1.3 (0.8-1.1) Activated Partial Thromboplast Time 37 SEC (24-38) Sodium Level 143 mmol/L (136-145) Potassium Level 3.6 mmol/L (3.5-5.1) Chloride Level 103 mmol/L (98-107) Carbon Dioxide Level 28 mmol/L (21-32) Anion Gap 12 (6-14) Blood Urea Nitrogen 29 mg/dL (7-20) Creatinine 0.8 mg/dL (0.6-1.0) Estimated GFR (Cockcroft-Gault) 72.0 BUN/Creatinine Ratio 36 (6-20) Glucose Level 157 mg/dL (70-99) Lactic Acid Level 3.0 mmol/L (0.4-2.0) 1.7 mmol/L (0.4-2.0) Calcium Level 9.1 mg/dL (8.5-10.1) Phosphorus Level 3.6 mg/dL (2.6-4.7) Magnesium Level 2.2 mg/dL (1.8-2.4) Total Bilirubin 0.5 mg/dL (0.2-1.0) Aspartate Amino Transf (AST/SGOT) 17 U/L (15-37) Alanine Aminotransferase (ALT/SGPT) 29 U/L (14-59) Alkaline Phosphatase 74 U/L (46-116) Creatine Kinase 82 U/L (26-192) Troponin I High Sensitivity 12 ng/L (4-50) NR-Kdl-A-Type Natriuretic Peptide 166 pg/mL (0-124) Total Protein 7.4 g/dL (6.4-8.2) Albumin 3.4 g/dL (3.4-5.0) Albumin/Globulin Ratio 0.9 (1.0-1.7) Salicylates Level 1.1 mg/dL (2.8-20.0) Salicylate Last Dose Date Unknown Salicylate Last Dose Time Unknown Acetaminophen Level < 2 mcg/ml (10-30) Acetaminophen Last Dose Date Unknown Acetaminophen Last Dose Time Unknown Ethyl Alcohol Level < 10 mg/dL (0-10) Acetone Level Neg (NEG) Urine Collection Type U cath Urine Color Yellow Urine Clarity Clear Urine pH 7.5 (<5.0-8.0) Urine Specific [place] 1.015 (1.000-1.030) Urine Protein 30 mg/dL (NEG-TRACE) Urine Glucose (UA) Negative mg/dL (NEG) Urine Ketones (Stick) Negative mg/dL (NEG) Urine Blood Moderate (NEG) Urine Nitrite Negative (NEG) Urine Bilirubin Negative (NEG) Urine Urobilinogen Dipstick 1.0 mg/dL (0.2 mg/dL) Urine Leukocyte Esterase Large (NEG) Urine RBC 6-10 /HPF (0-2) Urine WBC 20-40 /HPF (0-4) Urine Squamous Epithelial Cells Occ /LPF Urine Bacteria Many /HPF (0-FEW) Urine Mucus Slight /LPF Urine Opiates Screen Neg (NEG) Urine Methadone Screen Neg (NEG) Urine Barbiturates Neg (NEG) Urine Phencyclidine Screen Neg (NEG) Urine Amphetamine/Methamphetamine Neg (NEG) Urine Benzodiazepines Screen Neg (NEG) Urine Cocaine Screen Neg (NEG) Urine Cannabinoids Screen Neg (NEG) Urine Ethyl Alcohol Neg (NEG) Glucose (Fingerstick) 96 mg/dL (70-99) Test 09/28/21 11:29 Glucose (Fingerstick) 105 mg/dL (70-99) Images Images CT head INDICATION: Altered mental status TECHNIQUE: Sequential axial images through the head were obtained without the administration of IV contrast. Exposure: One or more of the following in the visualized dose reduction techniqu es were utilized for this examination: 1. Automated exposure control 2. Adjustment of the MA and/or KV according to patient size 3. Use of iterative of reconstructive technique Comparisons: None FINDINGS: No focal parenchymal lesion or hemorrhage is identified. There is no midline shift or sulcal effacement. Moderate patchy hypodensity in the periventricular white matter. Lacunar infarct at the right basal ganglia. No acute vascular territory infarction is identified. [place]-white distinction is preserved. The ventricular system is within normal limits without compression hydrocephalus. The basal cisterns are well maintained. The visualized portions of the paranasal sinuses and mastoid air cells are well- pneumatized. No acute fractures. IMPRESSION: Moderate small vessel ischemic change and a lacunar infarct at the right basal ganglia. These are technically age indeterminate without recent prior imaging. If there are concerns for acute ischemia MRI would better evaluate. Assessment/Plan Assessment/Plan Impression: Given the history from the chart, the patient's son, and my examination, she has an old right hemispheric stroke and the CT findings are chronic. She has resulting left hemiplegia, aphasia/dysarthria, and dysphagia. Nausea and vomiting, resolved. At admission leukocytosis, lactic acidosis, prerenal azotemia, cystitis, sepsis. This resulted in encephalopathy. Recommendations: No further neurological studies needed, in particular no need for MRI or further stroke work-up Treatment of medical diseases Okay for discharge I discussed with patient's son. Thank you for letting me help with the patient's care. PHIL LEWIS MD Sep 28, 2021 12:29
--- NOTE | 2021-09-28 12:47 | NUR ---
Glucerna feeding started on patient at 10cc/hr, increase 10cc Q6H to reach a goal of 55cc/hr.
--- NOTE | 2021-09-28 13:09 | CONS ---
DATE OF CONSULTATION: 09/28/2021 REFERRING PHYSICIAN: Dr. Mendez. REASON FOR CONSULTATION: Fever, possible aspiration. SOURCE OF INFORMATION: History obtained from chart and medical staff. The patient is able to answer a very few questions. HISTORY OF PRESENT ILLNESS: A 66-year-old female with history of CVA with aphasia, left-sided hemiparesis, assisted resident, diabetes, hypertension, hyperlipidemia, was brought by EMS from [place] due to concerns of fever, vomiting, possible aspiration. The patient is able to answer only a few questions. The patient had fever of 101. White count was elevated at 21,000 with a left shift. Lactate was 3.0. Troponin was normal. UA showed pyuria. The patient was found to have left upper extremity cellulitis. Acetone was negative. Salicylate was 1.1. Chest x-ray revealed pulmonary venous congestion, minimally displaced left humeral head, diffuse swelling of the left upper extremity. X-ray reviewed. The patient was started on Zosyn and vancomycin. ID consultation has been requested for further evaluation and treatment. Discussed with nursing staff. Afebrile this morning. Able to answer a few questions. A little better, still very slow. Denies any headache, nausea, vomiting, fever, chills, was unable to answer how long she has had left upper extremity swelling and redness and pain. Says no when I asked her if she had a [place] catheter in place. REVIEW OF SYSTEMS: Unable to obtain. The patient is very slow except for limited information as above per the HPI. PAST MEDICAL HISTORY: CVA with aphasia, left-sided hemiplegia/hemiparesis, diabetes, hypertension, hyperlipidemia, history of thrombosis. ALLERGIES: CODEINE, MORPHINE. CURRENT MEDICATIONS: IV vancomycin and Zosyn. PHYSICAL EXAMINATION: VITAL SIGNS: Temperature 98.8, T-max 101.2, pulse 94, respiratory rate 18, blood pressure 112/57, oxygen saturation 95% on room air. GENERAL: The patient is alert, opens eyes, answers a very few questions, very slow in answering questions. HEENT: Normocephalic, atraumatic. Dry mucous membrane. NECK: Supple. No pain. No meningismus. LUNGS: Clear. HEART: S1, S2. ABDOMEN: Soft, obese with PEG tube in place. EXTREMITIES: Keloids present. Left upper extremity swelling, erythema going from the hand up to the shoulder. Warmth, mild tenderness though left arm is flaccid. NEUROLOGIC: Alert, awake, answers a very few questions, slow in answering. PSYCHIATRIC: Calm and cooperative. SKIN: PIV looks clean. GENITOURINARY: No [place]. LABORATORY DATA: WBC 21.2, hemoglobin 12.7, platelets 291. Lactate was 3.0, now 1.7. UA has leukocyte esterase, positive UDS noted. IMAGING: Noted. IMPRESSION: 1. Fever. 2. Leukocytosis and lactic acidosis. 3. Left upper extremity cellulitis. 4. Urinary tract infection. 5. Nausea, vomiting. 6. Possible aspiration. 7. History of cerebrovascular accident with aphasia. 8. Diabetes mellitus. 9. shelter resident. RECOMMENDATIONS: 1. Continue Zosyn. 2. Discontinue IV vancomycin. Start Zyvox. 3. Follow up labs and cultures. 4. Continue supportive care. 5. Discussed with RN. Thank you, Dr. Mendez, for consulting Infectious Disease to participate in this patient's care. If you have any questions, do not hesitate to contact me. HOLLY HOLLY: Nba TID: [id number]
[2021-09-28 15:00] VITALS: BP 104/56
[2021-09-28] MEDS: IV NORMAL SALINE 1000ML BAG 1,000 ML IV SCH ×2 (17:45→22:08)
[2021-09-28 19:00] VITALS: BP 113/70
[2021-09-28] MEDS: LINEZOLID 600 MG TABLET PEG SCH (22:02)
[2021-09-28 23:00] VITALS: BP 143/68
[2021-09-29 03:00] VITALS: BP 115/67
[2021-09-29] MEDS: PIPERACILLIN/TAZOBACTAM 3.375 GM in IV NORMAL SALINE 50ML 50 ML IV SCH ×3 (05:08→16:52)
[2021-09-29] MEDS: IV NORMAL SALINE 1000ML BAG 1,000 ML IV SCH ×3 (05:08→16:53)
[2021-09-29 07:00] VITALS: BP 122/71
[2021-09-29 08:19] LABS: CALCIUM 7.9 mg/dL (8.5-10.1); CREATININE 0.6 mg/dL (0.6-1.0); GFR 100.3; MAGNESIUM 1.8 mg/dL (1.8-2.4); PHOSPHORUS 2.6 mg/dL (2.6-4.7); POTASSIUM 3.1 mmol/L (3.5-5.1)
[2021-09-29] MEDS: ENOXAPARIN 40 MG/0.4 ML SYRINGE. SQ SCH (08:32)
[2021-09-29] MEDS: LINEZOLID 600 MG TABLET PEG SCH ×2 (08:32→20:57)
[2021-09-29 08:39] LABS: BASO % 0 % (0-3); EOS # 0.3 x10^3/uL (0.0-0.7); EOS % 4 % (0-3); HEMATOCRIT 33.1 % (36.0-47.0); HEMOGLOBIN 10.6 g/dL (12.0-15.5); LYMPH # 1.5 x10^3/uL (1.0-4.8); LYMPH % 16 % (24-48); MEAN CORPUSCULAR HEMOGLOBIN 27 pg (25-35); MEAN CORPUSCULAR HGB CONC 32 g/dL (31-37); MEAN CORPUSCULAR VOLUME 85 fL (79-100); MONO # 0.8 x10^3/uL (0.0-1.1); MONO % 9 % (0-9); NEUT # 6.4 x10^3/uL (1.8-7.7); NEUT % 71 % (31-73); PLATELET COUNT 237 x10^3/uL (140-400); RED BLOOD COUNT 3.91 x10^6/uL (3.50-5.40); RED CELL DISTRIBUTION WIDTH 14.8 % (11.5-14.5); WHITE BLOOD COUNT 9.1 x10^3/uL (4.0-11.0)
--- NOTE | 2021-09-29 10:32 | PDOC ---
[facility] PROGRESS NOTE Date of Service DOS: DATE: 09/29/21 TIME: 10:32 Chief Complaint Chief Complaint Old stroke 6 months ago requiring PEG tube Hemiparesis Sepsis Acute infectious and metabolic encephalopathy Moderate small vessel ischemic change and a lacunar infarct at the right basal ganglia. Acute UTI Prerenal azotemia Lactic acidemia Risk for aspiration History of stroke and residual left hemiparesis History of PEG tube placement Failure to thrive History of Present Illness History of Present Illness 09/29/2021 Patient seen and examined She is extremely disabled and can barely talk Has PEG feed running Has IV Zosyn hanging Was able to say 1 word Discussed with RN Chart reviewed Vitals/I&O Vitals/I&O: Vital Signs Date Time Temp Pulse Resp B/P (MAP) Pulse Ox O2 Delivery O2 Flow Rate FiO2 09/29/21 07:00 98.4 82 20 122/71 (88) 95 Room Air 98.4 I & O 09/28/21 09/28/21 09/29/21 15:00 23:00 07:00 Intake Total 175 ml 219 ml 1536 ml Balance 175 ml 219 ml 1536 ml Physical Exam General: mild distress, Other (Barely able to talk) Heart: Regular rate Lungs: Clear Abdomen: Normal bowel sounds, Other (Has a clean PEG tube in place) Extremities: Other (2+ edema) Skin: Other (Thin and frail) Labs Labs: Laboratory Tests Test 09/28/21 11:29 09/28/21 17:00 09/29/21 00:08 09/29/21 07:01 Glucose (Fingerstick) 105 mg/dL (70-99) 113 mg/dL (70-99) 111 mg/dL (70-99) 118 mg/dL (70-99) Test 09/29/21 07:20 White Blood Count 9.1 x10^3/uL (4.0-11.0) Red Blood Count 3.91 x10^6/uL (3.50-5.40) Hemoglobin 10.6 g/dL (12.0-15.5) Hematocrit 33.1 % (36.0-47.0) Mean Corpuscular Volume 85 fL (79-100) Mean Corpuscular Hemoglobin 27 pg (25-35) Mean Corpuscular Hemoglobin Concent 32 g/dL (31-37) Red Cell Distribution Width 14.8 % (11.5-14.5) Platelet Count 237 x10^3/uL (140-400) Neutrophils (%) (Auto) 71 % (31-73) Lymphocytes (%) (Auto) 16 % (24-48) Monocytes (%) (Auto) 9 % (0-9) Eosinophils (%) (Auto) 4 % (0-3) Basophils (%) (Auto) 0 % (0-3) Neutrophils # (Auto) 6.4 x10^3/uL (1.8-7.7) Lymphocytes # (Auto) 1.5 x10^3/uL (1.0-4.8) Monocytes # (Auto) 0.8 x10^3/uL (0.0-1.1) Eosinophils # (Auto) 0.3 x10^3/uL (0.0-0.7) Basophils # (Auto) 0.0 x10^3/uL (0.0-0.2) Sodium Level 148 mmol/L (136-145) Potassium Level 3.1 mmol/L (3.5-5.1) Chloride Level 113 mmol/L (98-107) Carbon Dioxide Level 24 mmol/L (21-32) Anion Gap 11 (6-14) Blood Urea Nitrogen 17 mg/dL (7-20) Creatinine 0.6 mg/dL (0.6-1.0) Estimated GFR (Cockcroft-Gault) 100.3 Glucose Level 120 mg/dL (70-99) Calcium Level 7.9 mg/dL (8.5-10.1) Phosphorus Level 2.6 mg/dL (2.6-4.7) Magnesium Level 1.8 mg/dL (1.8-2.4) Assessment and Plan Assessmemt and Plan Problems Medical Problems: (1) Cellulitis of arm, left Status: Acute (2) Sepsis Status: Acute (3) UTI (urinary tract infection) Status: Acu Sepsis Hemiparesis Recent stroke with PEG placement Acute infectious and metabolic encephalopathy Moderate small vessel ischemic change and a lacunar infarct at the right basal ganglia. Acute UTI Prerenal azotemia Lactic acidemia Risk for aspiration History of stroke and residual left hemiparesis History of PEG tube placement Failure to thrive Plan IV antibiotics Continue PEG feeds Appreciate ID and neurology input Wound care PT OT speech therapy when possible Trend labs Home meds DVT prophylaxis IV Protonix Full code Long-term prognosis extremely guarded Per infectious disease recommendations please see the following and we certainly agree; IMPRESSION: 1. Fever. 2. Leukocytosis and lactic acidosis. 3. Left upper extremity cellulitis. 4. Urinary tract infection. 5. Nausea, vomiting. 6. Possible aspiration. 7. History of cerebrovascular accident with aphasia. 8. Diabetes mellitus. 9. correction resident. RECOMMENDATIONS: 1. Continue Zosyn. 2. Discontinue IV vancomycin. Start Zyvox. 3. Follow up labs and cultures. 4. Continue supportive care. 5. Discussed with RN. Comment Review of Relevant I have reviewed the following items jason (where applicable) has been applied. Medications: Current Medications Medications (Trade) Dose Ordered Sig/Guillermo Route PRN Reason Start Time Stop Time Status Last Admin Dose Admin Linezolid (Zyvox) 600 mg BID PEG 09/28/21 21:00 09/29/21 08:32 Justifications for Admission Other Justification Sepsis with acute infarct of the right basal ganglia MARIELA HAN III DO Sep 29, 2021 10:32
[2021-09-29 11:00] VITALS: BP 115/56
--- NOTE | 2021-09-29 12:50 | PDOC ---
Infectious Disease Note Subjective: Subjective PT more alert,s ays wants topoop speaks very slowly remains afebrile Vital Signs: Vital Signs Vital Signs Date Time Temp Pulse Resp B/P (MAP) Pulse Ox O2 Delivery O2 Flow Rate FiO2 09/29/21 11:00 98.5 84 20 115/56 (75) 96 Room Air 98.5 Physical Exam: PHYSICAL EXAM GENERAL: The patient is alert, opens eyes, answers a very few questions, very slow in answering questions. HEENT: Normocephalic, atraumatic. Dry mucous membrane. NECK: Supple. No pain. No meningismus. LUNGS: Clear. HEART: S1, S2. ABDOMEN: Soft, obese with PEG tube in place. EXTREMITIES: Keloids present. Left upper extremity swelling, erythema going from the hand up to the shoulder. Warmth, mild tenderness though left arm is flaccid. NEUROLOGIC: Alert, awake, answers a very few questions, slow in answering. PSYCHIATRIC: Calm and cooperative. SKIN: PIV looks clean. GENITOURINARY: No Parish. Medications: Inpatient Meds: Medications reviewed. Labs: Lab Laboratory Tests Test 09/28/21 17:00 09/29/21 00:08 09/29/21 07:01 09/29/21 07:20 Glucose (Fingerstick) 113 mg/dL (70-99) 111 mg/dL (70-99) 118 mg/dL (70-99) White Blood Count 9.1 x10^3/uL (4.0-11.0) Red Blood Count 3.91 x10^6/uL (3.50-5.40) Hemoglobin 10.6 g/dL (12.0-15.5) Hematocrit 33.1 % (36.0-47.0) Mean Corpuscular Volume 85 fL (79-100) Mean Corpuscular Hemoglobin 27 pg (25-35) Mean Corpuscular Hemoglobin Concent 32 g/dL (31-37) Red Cell Distribution Width 14.8 % (11.5-14.5) Platelet Count 237 x10^3/uL (140-400) Neutrophils (%) (Auto) 71 % (31-73) Lymphocytes (%) (Auto) 16 % (24-48) Monocytes (%) (Auto) 9 % (0-9) Eosinophils (%) (Auto) 4 % (0-3) Basophils (%) (Auto) 0 % (0-3) Neutrophils # (Auto) 6.4 x10^3/uL (1.8-7.7) Lymphocytes # (Auto) 1.5 x10^3/uL (1.0-4.8) Monocytes # (Auto) 0.8 x10^3/uL (0.0-1.1) Eosinophils # (Auto) 0.3 x10^3/uL (0.0-0.7) Basophils # (Auto) 0.0 x10^3/uL (0.0-0.2) Sodium Level 148 mmol/L (136-145) Potassium Level 3.1 mmol/L (3.5-5.1) Chloride Level 113 mmol/L (98-107) Carbon Dioxide Level 24 mmol/L (21-32) Anion Gap 11 (6-14) Blood Urea Nitrogen 17 mg/dL (7-20) Creatinine 0.6 mg/dL (0.6-1.0) Estimated GFR (Cockcroft-Gault) 100.3 Glucose Level 120 mg/dL (70-99) Calcium Level 7.9 mg/dL (8.5-10.1) Phosphorus Level 2.6 mg/dL (2.6-4.7) Magnesium Level 1.8 mg/dL (1.8-2.4) Test 09/29/21 12:02 Glucose (Fingerstick) 143 mg/dL (70-99) Objective: Assessment: 1. Fever. 2. Leukocytosis and lactic acidosis. 3. Left upper extremity cellulitis. 4. Urinary tract infection. 5. Nausea, vomiting. 6. Possible aspiration. 7. History of cerebrovascular accident with aphasia. 8. Diabetes mellitus. 9. penitentiary resident. 10.Constipation Plan: Plan of Care 1. Continue Zosyn/ Zyvox. 2 Follow up labs and cultures. 3 Continue supportive care. ZIA EDMOND MD Sep 29, 2021 12:50
[2021-09-29 15:00] VITALS: BP 137/67
[2021-09-29 19:00] VITALS: BP 149/89
[2021-09-29] MEDS: ACETAMINOPHEN 325 MG TABLET. PO PRN (21:02)
[2021-09-29 23:00] VITALS: BP 128/70
[2021-09-30] MEDS: PIPERACILLIN/TAZOBACTAM 3.375 GM in IV NORMAL SALINE 50ML 50 ML IV SCH ×4 (00:21→17:46)
[2021-09-30] MEDS: IV NORMAL SALINE 1000ML BAG 1,000 ML IV SCH ×2 (02:23→12:25)
[2021-09-30 03:11] VITALS: BP 132/84
[2021-09-30 07:00] VITALS: BP 137/53
[2021-09-30 07:47] LABS: BASO % 0 % (0-3); EOS # 0.3 x10^3/uL (0.0-0.7); EOS % 5 % (0-3); HEMATOCRIT 30.1 % (36.0-47.0); HEMOGLOBIN 9.9 g/dL (12.0-15.5); LYMPH # 1.5 x10^3/uL (1.0-4.8); LYMPH % 24 % (24-48); MEAN CORPUSCULAR HEMOGLOBIN 28 pg (25-35); MEAN CORPUSCULAR HGB CONC 33 g/dL (31-37); MEAN CORPUSCULAR VOLUME 84 fL (79-100); MONO # 0.5 x10^3/uL (0.0-1.1); MONO % 9 % (0-9); NEUT # 3.8 x10^3/uL (1.8-7.7); NEUT % 62 % (31-73); PLATELET COUNT 229 x10^3/uL (140-400); RED BLOOD COUNT 3.57 x10^6/uL (3.50-5.40); RED CELL DISTRIBUTION WIDTH 14.9 % (11.5-14.5); WHITE BLOOD COUNT 6.2 x10^3/uL (4.0-11.0)
[2021-09-30 07:54] LABS: CREATININE 1.1 mg/dL (0.6-1.0); GFR 49.8; MAGNESIUM 1.6 mg/dL (1.8-2.4)
[2021-09-30 08:13] LABS: POTASSIUM 2.6 mmol/L (3.5-5.1)
[2021-09-30] MEDS ORDERED: POTASSIUM CHLORIDE 20 MEQ TABLET.ER. PO ONE ×2 (09:30→13:30)
[2021-09-30] MEDS: LINEZOLID 600 MG TABLET PEG SCH ×2 (10:15→20:24)
[2021-09-30] MEDS: ENOXAPARIN 40 MG/0.4 ML SYRINGE. SQ SCH (10:16)
--- NOTE | 2021-09-30 10:26 | PDOC ---
[employer] PROGRESS NOTE Date of Service DOS: DATE: 09/30/21 TIME: 10:24 Chief Complaint Chief Complaint Old stroke 6 months ago requiring PEG tube Hemiparesis Sepsis Acute infectious and metabolic encephalopathy Moderate small vessel ischemic change and a lacunar infarct at the right basal ganglia. Acute UTI Prerenal azotemia Lactic acidemia Risk for aspiration History of stroke and residual left hemiparesis History of PEG tube placement Failure to thrive History of Present Illness History of Present Illness 09/30/2021 Patient seen and examined She is resting with no apparent distress Left arm quite edematous compared to the right Discussed with RN Chart reviewed Patient has PEG feeds running at 35 cc an hour (Glucerna) Potassium is low this morning at 2.6 we are going to give her 2 doses of potassium 09/29/2021 Patient seen and examined She is extremely disabled and can barely talk Has PEG feed running Has IV Zosyn hanging Was able to say 1 word Discussed with RN Chart reviewed Vitals/I&O Vitals/I&O: Vital Signs Date Time Temp Pulse Resp B/P (MAP) Pulse Ox O2 Delivery O2 Flow Rate FiO2 09/30/21 07:00 98.7 74 20 137/53 (81) 97 Room Air 98.7 I & O 09/29/21 09/29/21 09/30/21 15:00 23:00 07:00 Intake Total 0 ml 0 ml 1100 ml Balance 0 ml 0 ml 1100 ml Physical Exam Physical Exam: GENERAL: The patient is alert, opens eyes, answers a very few questions, very slow in answering questions. HEENT: Normocephalic, atraumatic. Dry mucous membrane. NECK: Supple. No pain. No meningismus. LUNGS: Clear. HEART: S1, S2. ABDOMEN: Soft, obese with PEG tube in place. EXTREMITIES: Keloids present. Left upper extremity swelling, erythema going from the hand up to the shoulder. Warmth, mild tenderness though left arm is flaccid. NEUROLOGIC: Alert, awake, answers a very few questions, slow in answering. PSYCHIATRIC: Calm and cooperative. SKIN: PIV looks clean. GENITOURINARY: No Parish. General: mild distress, Other (Barely able to talk) Heart: Regular rate Lungs: Clear Abdomen: Normal bowel sounds, Other (Has a clean PEG tube in place) Extremities: Other (2+ edema) Skin: Other (Thin and frail) Labs Labs: Laboratory Tests Test 09/29/21 12:02 09/29/21 18:28 09/30/21 01:31 09/30/21 06:40 Glucose (Fingerstick) 143 mg/dL (70-99) 141 mg/dL (70-99) 127 mg/dL (70-99) White Blood Count 6.2 x10^3/uL (4.0-11.0) Red Blood Count 3.57 x10^6/uL (3.50-5.40) Hemoglobin 9.9 g/dL (12.0-15.5) Hematocrit 30.1 % (36.0-47.0) Mean Corpuscular Volume 84 fL (79-100) Mean Corpuscular Hemoglobin 28 pg (25-35) Mean Corpuscular Hemoglobin Concent 33 g/dL (31-37) Red Cell Distribution Width 14.9 % (11.5-14.5) Platelet Count 229 x10^3/uL (140-400) Neutrophils (%) (Auto) 62 % (31-73) Lymphocytes (%) (Auto) 24 % (24-48) Monocytes (%) (Auto) 9 % (0-9) Eosinophils (%) (Auto) 5 % (0-3) Basophils (%) (Auto) 0 % (0-3) Neutrophils # (Auto) 3.8 x10^3/uL (1.8-7.7) Lymphocytes # (Auto) 1.5 x10^3/uL (1.0-4.8) Monocytes # (Auto) 0.5 x10^3/uL (0.0-1.1) Eosinophils # (Auto) 0.3 x10^3/uL (0.0-0.7) Basophils # (Auto) 0.0 x10^3/uL (0.0-0.2) Sodium Level 159 mmol/L (136-145) Potassium Level 2.6 mmol/L (3.5-5.1) Chloride Level 113 mmol/L (98-107) Carbon Dioxide Level 22 mmol/L (21-32) Anion Gap 24 (6-14) Blood Urea Nitrogen 12 mg/dL (7-20) Creatinine 1.1 mg/dL (0.6-1.0) Estimated GFR (Cockcroft-Gault) 49.8 Glucose Level 97 mg/dL (70-99) Calcium Level 7.0 mg/dL (8.5-10.1) Magnesium Level 1.6 mg/dL (1.8-2.4) Test 09/30/21 06:57 Glucose (Fingerstick) 118 mg/dL (70-99) Assessment and Plan Assessmemt and Plan Problems Medical Problems: (1) Cellulitis of arm, left Status: Acute (2) Sepsis Status: Acute (3) UTI (urinary tract infection) Status: Acute Sepsis Hemiparesis Recent stroke with PEG placement Acute infectious and metabolic encephalopathy Moderate small vessel ischemic change and a lacunar infarct at the right basal ganglia. Acute UTI Edema Prerenal azotemia Lactic acidemia Risk for aspiration History of stroke and residual left hemiparesis History of PEG tube placement Failure to thrive Plan IV antibiotics (Zosyn and Zyvox per ID) Following cultures We are going to give her 2 doses of 40 potassium chloride today Continue PEG feeds Appreciate ID and neurology input Wound care PT OT speech therapy if and when possible Trend labs Home meds DVT prophylaxis IV Protonix Full code Long-term prognosis extremely guarded Comment Review of Relevant I have reviewed the following items jason (where applicable) has been applied. Medications: Current Medications Medications (Trade) Dose Ordered Sig/Guillermo Route PRN Reason Start Time Stop Time Status Last Admin Dose Admin Potassium Chloride (Klor-Con) 40 meq 1X ONCE PO 09/30/21 09:30 09/30/21 09:31 DC 09/30/21 10:15 Justifications for Admission Other Justification Sepsis with acute infarct of the right basal ganglia MARIELA HAN III DO Sep 30, 2021 10:26
[2021-09-30 11:00] VITALS: BP 123/54
--- NOTE | 2021-09-30 13:28 | RAD ---
Left upper extremity venous duplex Doppler ultrasound HISTORY: Left upper extremity redness and swelling. FINDINGS: No DVT evident of the left internal jugular vein and subclavian vein with patent color Dopp ler blood flow and cardiac pulsatility. No DVT evident of the left axillary vein or brachial veins wi th compressibility and patent color Doppler blood flow and augmentation of blood flow. No DVT evident of the left radial or ulnar veins with compressibility and patent color Doppler blood flow. No throm bosis of the left cephalic and basilic veins with patent color Doppler blood flow and augmentation of flow and compressibility. IMPRESSION: Negative left upper extremity for DVT. Electronically signed by: Lenny Holcomb MD (09/30/2021 1:26 PM) [id number]
[2021-09-30 15:00] VITALS: BP 169/70
[2021-09-30 19:00] VITALS: BP 141/84
[2021-09-30] MEDS: LORazepam 0.5 MG TABLET PO PRN (20:24)
[2021-09-30 23:04] VITALS: BP 124/78
[2021-10-01] MEDS: PIPERACILLIN/TAZOBACTAM 3.375 GM in IV NORMAL SALINE 50ML 50 ML IV SCH ×5 (00:16→23:45)
[2021-10-01] MEDS: IV 1/2 NORMAL SALINE 1,000 ML IV SCH ×2 (00:16→20:49)
[2021-10-01] MEDS ORDERED: MAGNESIUM SULFATE 2GM 50 ML IV ONE (00:30)
[2021-10-01] MEDS ORDERED: ANTI-COAG MONITOR BY PHARMACY. MC PRN (00:45)
[2021-10-01 03:04] VITALS: BP 124/66
[2021-10-01 07:00] VITALS: BP 151/81
[2021-10-01 07:11] LABS: BASO # 0.1 x10^3/uL (0.0-0.2); BASO % 1 % (0-3); EOS # 0.3 x10^3/uL (0.0-0.7); EOS % 4 % (0-3); HEMOGLOBIN 11.5 g/dL (12.0-15.5); LYMPH # 1.8 x10^3/uL (1.0-4.8); LYMPH % 22 % (24-48); MEAN CORPUSCULAR HEMOGLOBIN 28 pg (25-35); MEAN CORPUSCULAR HGB CONC 33 g/dL (31-37); MEAN CORPUSCULAR VOLUME 84 fL (79-100); MONO # 0.6 x10^3/uL (0.0-1.1); MONO % 7 % (0-9); NEUT # 5.5 x10^3/uL (1.8-7.7); NEUT % 66 % (31-73); PLATELET COUNT 290 x10^3/uL (140-400); RED BLOOD COUNT 4.16 x10^6/uL (3.50-5.40); RED CELL DISTRIBUTION WIDTH 14.5 % (11.5-14.5); WHITE BLOOD COUNT 8.3 x10^3/uL (4.0-11.0)
[2021-10-01 07:24] LABS: CALCIUM 8.5 mg/dL (8.5-10.1); CREATININE 0.7 mg/dL (0.6-1.0); MAGNESIUM 2.5 mg/dL (1.8-2.4); POTASSIUM 3.4 mmol/L (3.5-5.1)
[2021-10-01] MEDS: INSULIN LISPRO 300 UNITS/3 ML VIAL. SQ SCH ×3 (08:00→20:49)
--- NOTE | 2021-10-01 08:58 | PDOC ---
PROGRESS NOTES Date of Service DATE: 10/01/21 TIME: 08:56 Assessment Problems Medical Problems: (1) Cellulitis of arm, left Status: Acute (2) Sepsis Status: Acute (3) UTI (urinary tract infection) Status: Acute Given the history from the chart, the patient's son, and my examination, she has an old right hemispheric stroke and the CT findings are chronic. She has resulting left hemiplegia, aphasia/dysarthria, and dysphagia. Nausea and vomiting, resolved. At admission leukocytosis, lactic acidosis, prerenal azotemia, cystitis, sepsis. Also has hypokalemia. This resulted in encephalopathy. Plan No further neurological studies needed, in particular no need for MRI or further stroke work-up Treatment of medical diseases Subjective None Objective Vital Signs Date Time Temp Pulse Resp B/P (MAP) Pulse Ox O2 Delivery O2 Flow Rate FiO2 10/01/21 07:00 98.4 70 16 151/81 (104) 97 Room Air 98.4 Intake and Output 10/01/21 07:00 Intake Total 1680 ml Balance 1680 ml IV Total 1100 ml Tube Feeding 580 ml # Voids 7 # Bowel Movements 2 PHYSICAL EXAM Eyes open to voice, does not follow commands, nonverbal PERRL. EOMI. CN: Left central facial weakness. Response to visual threat in both lo Muscle tone: normal. Muscle strength: Spastic left hemiplegia, does move the right side DTR: 2+ Plantar reflex: Extensor on left, flexor on the right Gait: not examined in bed. Sensory exam: Not cooperative. Cerebellar: Not cooperative Review of Relevant I have reviewed the following items jason (where applicable) has been applied. Labs Laboratory Tests Test 09/29/21 12:02 09/29/21 18:28 09/30/21 01:31 09/30/21 06:40 Glucose (Fingerstick) 143 mg/dL (70-99) 141 mg/dL (70-99) 127 mg/dL (70-99) White Blood Count 6.2 x10^3/uL (4.0-11.0) Red Blood Count 3.57 x10^6/uL (3.50-5.40) Hemoglobin 9.9 g/dL (12.0-15.5) Hematocrit 30.1 % (36.0-47.0) Mean Corpuscular Volume 84 fL (79-100) Mean Corpuscular Hemoglobin 28 pg (25-35) Mean Corpuscular Hemoglobin Concent 33 g/dL (31-37) Red Cell Distribution Width 14.9 % (11.5-14.5) Platelet Count 229 x10^3/uL (140-400) Neutrophils (%) (Auto) 62 % (31-73) Lymphocytes (%) (Auto) 24 % (24-48) Monocytes (%) (Auto) 9 % (0-9) Eosinophils (%) (Auto) 5 % (0-3) Basophils (%) (Auto) 0 % (0-3) Neutrophils # (Auto) 3.8 x10^3/uL (1.8-7.7) Lymphocytes # (Auto) 1.5 x10^3/uL (1.0-4.8) Monocytes # (Auto) 0.5 x10^3/uL (0.0-1.1) Eosinophils # (Auto) 0.3 x10^3/uL (0.0-0.7) Basophils # (Auto) 0.0 x10^3/uL (0.0-0.2) Sodium Level 159 mmol/L (136-145) Potassium Level 2.6 mmol/L (3.5-5.1) Chloride Level 113 mmol/L (98-107) Carbon Dioxide Level 22 mmol/L (21-32) Anion Gap 24 (6-14) Blood Urea Nitrogen 12 mg/dL (7-20) Creatinine 1.1 mg/dL (0.6-1.0) Estimated GFR (Cockcroft-Gault) 49.8 Glucose Level 97 mg/dL (70-99) Calcium Level 7.0 mg/dL (8.5-10.1) Magnesium Level 1.6 mg/dL (1.8-2.4) Test 09/30/21 06:57 09/30/21 12:10 09/30/21 18:15 10/01/21 00:32 Glucose (Fingerstick) 118 mg/dL (70-99) 131 mg/dL (70-99) 120 mg/dL (70-99) 114 mg/dL (70-99) Test 10/01/21 05:45 10/01/21 07:38 White Blood Count 8.3 x10^3/uL (4.0-11.0) Red Blood Count 4.16 x10^6/uL (3.50-5.40) Hemoglobin 11.5 g/dL (12.0-15.5) Hematocrit 35.0 % (36.0-47.0) Mean Corpuscular Volume 84 fL (79-100) Mean Corpuscular Hemoglobin 28 pg (25-35) Mean Corpuscular Hemoglobin Concent 33 g/dL (31-37) Red Cell Distribution Width 14.5 % (11.5-14.5) Platelet Count 290 x10^3/uL (140-400) Neutrophils (%) (Auto) 66 % (31-73) Lymphocytes (%) (Auto) 22 % (24-48) Monocytes (%) (Auto) 7 % (0-9) Eosinophils (%) (Auto) 4 % (0-3) Basophils (%) (Auto) 1 % (0-3) Neutrophils # (Auto) 5.5 x10^3/uL (1.8-7.7) Lymphocytes # (Auto) 1.8 x10^3/uL (1.0-4.8) Monocytes # (Auto) 0.6 x10^3/uL (0.0-1.1) Eosinophils # (Auto) 0.3 x10^3/uL (0.0-0.7) Basophils # (Auto) 0.1 x10^3/uL (0.0-0.2) Sodium Level 143 mmol/L (136-145) Potassium Level 3.4 mmol/L (3.5-5.1) Chloride Level 108 mmol/L (98-107) Carbon Dioxide Level 26 mmol/L (21-32) Anion Gap 9 (6-14) Blood Urea Nitrogen 12 mg/dL (7-20) Creatinine 0.7 mg/dL (0.6-1.0) Estimated GFR (Cockcroft-Gault) 84.0 Glucose Level 109 mg/dL (70-99) Calcium Level 8.5 mg/dL (8.5-10.1) Magnesium Level 2.5 mg/dL (1.8-2.4) Glucose (Fingerstick) 111 mg/dL (70-99) Laboratory Tests Test 09/30/21 12:10 09/30/21 18:15 10/01/21 00:32 10/01/21 05:45 Glucose (Fingerstick) 131 mg/dL (70-99) 120 mg/dL (70-99) 114 mg/dL (70-99) White Blood Count 8.3 x10^3/uL (4.0-11.0) Red Blood Count 4.16 x10^6/uL (3.50-5.40) Hemoglobin 11.5 g/dL (12.0-15.5) Hematocrit 35.0 % (36.0-47.0) Mean Corpuscular Volume 84 fL (79-100) Mean Corpuscular Hemoglobin 28 pg (25-35) Mean Corpuscular Hemoglobin Concent 33 g/dL (31-37) Red Cell Distribution Width 14.5 % (11.5-14.5) Platelet Count 290 x10^3/uL (140-400) Neutrophils (%) (Auto) 66 % (31-73) Lymphocytes (%) (Auto) 22 % (24-48) Monocytes (%) (Auto) 7 % (0-9) Eosinophils (%) (Auto) 4 % (0-3) Basophils (%) (Auto) 1 % (0-3) Neutrophils # (Auto) 5.5 x10^3/uL (1.8-7.7) Lymphocytes # (Auto) 1.8 x10^3/uL (1.0-4.8) Monocytes # (Auto) 0.6 x10^3/uL (0.0-1.1) Eosinophils # (Auto) 0.3 x10^3/uL (0.0-0.7) Basophils # (Auto) 0.1 x10^3/uL (0.0-0.2) Sodium Level 143 mmol/L (136-145) Potassium Level 3.4 mmol/L (3.5-5.1) Chloride Level 108 mmol/L (98-107) Carbon Dioxide Level 26 mmol/L (21-32) Anion Gap 9 (6-14) Blood Urea Nitrogen 12 mg/dL (7-20) Creatinine 0.7 mg/dL (0.6-1.0) Estimated GFR (Cockcroft-Gault) 84.0 Glucose Level 109 mg/dL (70-99) Calcium Level 8.5 mg/dL (8.5-10.1) Magnesium Level 2.5 mg/dL (1.8-2.4) Test 10/01/21 07:38 Glucose (Fingerstick) 111 mg/dL (70-99) Microbiology 09/27/21 Urine Culture - Final, Complete 09/27/21 Blood Culture - Preliminary, Resulted NO GROWTH AFTER 3 DAYS Medications Current Medications Acetaminophen (Tylenol Supp) [address] Last administered on 09/27/21at 19:58; Start 09/27/21 at 19:45; Stop 09/27/21 at 20:04; Status DC Sodium Chloride 1,000 ml @ 1,000 mls/hr 1X ONCE IV Last administered on 09/27/21at 19:58; Start 09/27/21 at 19:45; Stop 09/27/21 at 20:44; Status DC Piperacillin Sod/ Tazobactam Sod 4.5 gm/Sodium Chloride 100 ml @ 200 mls/hr 1X ONCE IV ; Start 09/27/21 at 20:15; Stop 09/27/21 at 20:44; Status UNV Vancomycin HCl (Vanco Per Pharmacy) 1 each PRN DAILY PRN MC SEE COMMENTS Last administered on 09/28/21at 02:16; Start 09/27/21 at 20:15; Stop 09/28/21 at 17:29; Status DC Sodium Chloride 1,000 ml @ 1,000 mls/hr 1X ONCE IV Last administered on 09/27/21at 20:53; Start 09/27/21 at 20:15; Stop 09/27/21 at 21:43; Status DC Piperacillin Sod/ Tazobactam Sod 3.375 gm/Sodium Chloride 50 ml @ 100 mls/hr 1X ONCE IV Last administered on 09/27/21at 20:24; Start 09/27/21 at 20:15; Stop 09/27/21 at 20:44; Status DC Vancomycin HCl 2 gm/Sodium Chloride 500 ml @ 250 mls/hr 1X ONCE IV Last administered on 09/27/21at 20:53; Start 09/27/21 at 21:00; Stop 09/27/21 at 22:59; Status DC Vancomycin HCl 1.5 gm/Sodium Chloride 500 ml @ 250 mls/hr Q12H IV Last administered on 09/28/21at 12:33; Start 09/28/21 at 09:00; Stop 09/28/21 at 17 :28; Status DC Vancomycin HCl (Vancomycin Trough Level) 1 each 1X ONCE MC ; Start 09/29/21 at 08:30; Stop 09/29/21 at 08:31; Status Cancel Acetaminophen (Tylenol Supp) 650 [address]N Q4HRS PRN CT MILD PAIN / TEMP > 100.3'F; Start 09/28/21 at 00:30 Ondansetron HCl (Zofran) 4 mg PRN Q6HRS PRN IVP NAUSEA/VOMITING 1ST CHOICE; Start 09/28/21 at 00:30; Status Cancel Piperacillin Sod/ Tazobactam Sod (Zosyn Per Pharmacy) 1 each PRN DAILY PRN MC SEE COMMENTS; Start 09/28/21 at 07:45 Sennosides (Senna) 17.2 mg PRN BID PRN PO CONSTIPATION; Start 09/28/21 at 07:45 Docusate Sodium (Colace) 100 mg PRN DAILY PRN PO HARD STOOLS; Start 09/28/21 at 07:45 Ondansetron HCl (Zofran) 4 mg PRN Q6HRS PRN IVP NAUSEA/VOMITING; Start 09/28/21 at 07:45 Dextrose (Dextrose 50%-Water Syringe) 12.5 gm PRN Q15MIN PRN IV SEE COMMENTS; Start 09/28/21 at 07:45 Sodium Chloride 1,000 ml @ 100 mls/hr Q10H IV Last administered on 09/30/21at 12:25; Start 09/28/21 at 07:45; Stop 10/01/21 at 00:11; Status DC Acetaminophen (Tylenol) 650 mg PRN Q4HRS PRN PO TEMP OVER 100.4F OR MILD PAIN Last administered on 09/29/21at 21:02; Start 09/28/21 at 07:45 Lorazepam (Ativan) 0.5 mg PRN Q6HRS PRN PO ANXIETY / AGITATION Last administered on 09/30/21at 20:24; Start 09/28/21 at 07:45 Lorazepam (Ativan Inj) 0.25 mg PRN Q4HRS PRN IV ANXIETY / AGITATION; Start 09/28/21 at 07:45 Enoxaparin Sodium (Lovenox 40mg Syringe) 40 mg Q24H SQ Last administered on 09/30/21at 10:16; Start 09/28/21 at 08:00; Stop 10/01/21 at 00:33; Status DC Prochlorperazine Edisylate (Compazine) 10 mg PRN Q6HRS PRN IV NAUSEA/VOMITING- 2ND CHOICE; Start 09/28/21 at 07:45 Zolpidem Tartrate (Ambien) 2.5 mg PRN QHS PRN PO INSOMNIA; Start 09/28/21 at 07:45 Piperacillin Sod/ Tazobactam Sod 3.375 gm/Sodium Chloride 50 ml @ 100 mls/hr Q6HRS IV Last administered on 10/01/21at 05:25; Start 09/28/21 at 08:00 Linezolid (Zyvox) 600 mg BID PEG Last administered on 09/30/21at 20:24; Start 09/28/21 at 21:00 Potassium Chloride (Klor-Con) 40 meq 1X ONCE PO Last administered on 09/30/21at 10:15; Start 09/30/21 at 09:30; Stop 09/30/21 at 09:31; Status DC Potassium Chloride (Klor-Con) 40 meq 1X ONCE PO Last administered on 09/30/21at 15:05; Start 09/30/21 at 13:30; Stop 09/30/21 at 13:31; Status DC Sodium Chloride 1,000 ml @ 75 mls/hr [id number] IV Last administered on 10/01/21at 00:16; Start 10/01/21 at 00:30 Magnesium Sulfate 50 ml @ 25 mls/hr 1X ONCE IV Last administered on 10/01/21at 01:20; Start 10/01/21 at 00:30; Stop 10/01/21 at 02:29; Status DC Amlodipine Besylate (Norvasc) 5 mg DAILY PEG ; Start 10/01/21 at 09:00 Aspirin (Aspirin Chewable) 81 mg DAILY PEG ; Start 10/01/21 at 09:00 Atorvastatin Calcium (Lipitor) 40 mg QHS PEG ; Start 10/01/21 at 21:00 Carvedilol (Coreg) 6.25 mg BIDWMEALS PEG ; Start 10/01/21 at 08:00 Famotidine (Pepcid) 20 mg HS PEG ; Start 10/01/21 at 21:00 Insulin Glargine (Lantus Syringe) 20 unit QHS SQ ; Start 10/01/21 at 21:00 Sertraline HCl (Zoloft) 25 mg DAILY PEG ; Start 10/01/21 at 09:00 Insulin Human Lispro (HumaLOG) 16 units TIDWMEALS SQ ; Start 10/01/21 at 08:00 Loperamide HCl (Immodium Oral Susp) 2 mg DAILYWBKFT PEG ; Start 10/01/21 at 08:00 Multivitamins/ Minerals Therapeutic (Centrum Multivit-Mineral Liq) 5 ml DAILY PEG ; Start 10/01/21 at 09:00 Fish Oil (Fish Oil) 1,000 mg TID PO ; Start 10/01/21 at 09:00 Apixaban (Eliquis) 5 mg BID FT ; Start 10/01/21 at 09:00 Info (Anti-Coagulation Monitoring By Pharmacy) 1 each PRN DAILY PRN MC PER PROTOCOL Last administered on 10/01/21at 02:28; Start 10/01/21 at 00:45 Active Scripts Active Reported Zoloft (Sertraline Hcl) 25 Mg Tablet 1 Tab PEG DAILY Pepcid (Famotidine) 20 Mg Tablet 20 Mg PEG HS Novolin R Flexpen (Insulin Regular, Human) 100 Unit/1 Ml Insuln.pen 16 Unit SQ TID Multiple Vitamins (Multivitamin) 1 Each Tablet 1 Tab PEG DAILY 30 Days Loperamide (Loperamide Hcl) 2 Mg Tablet 2 Mg PEG DAILYWBKFT Lantus (Insulin Glargine,Hum.rec.anlog) 100 Unit/1 Ml Vial 20 Unit SQ QHS [place]-3 ([place]-3 Fatty Acids) 1,000 Mg Capsule 1 Cap PEG TID 30 Days Eliquis (Apixaban) 5 Mg Tablet 5 Mg PEG BID Carvedilol (Carvedilol) 6.25 Mg Tablet 6.25 Mg PEG BIDWMEALS Atorvastatin Calcium 40 Mg Tablet 1 Tab PEG DAILY Aspirin 81 Mg Tab.chew 1 Tab PEG DAILY Amlodipine Besylate 5 Mg Tablet 5 Mg PEG DAILY Vitals/I & O Vital Sign - Last 24 Hours 09/30/21 09/30/21 09/30/21 09/30/21 11:00 15:00 19:00 20:20 Temp 98.3 97.8 98.1 98.3 97.8 98.1 Pulse 77 78 75 Resp 20 20 19 B/P (MAP) 123/54 (77) 169/70 (103) 141/84 (103) Pulse Ox 95 93 96 O2 Delivery Room Air Room Air Room Air Room Air 09/30/21 10/01/21 10/01/21 23:04 03:04 07:00 Temp 98.0 98.0 98.4 98.0 98.0 98.4 Pulse 78 72 70 Resp 18 20 16 B/P (MAP) 124/78 (93) 124/66 (85) 151/81 (104) Pulse Ox 95 97 97 O2 Delivery Room Air Room Air Room Air Intake and Output 09/30/21 09/30/21 10/01/21 15:00 23:00 07:00 Intake Total 520 ml 60 ml 1100 ml Balance 520 ml 60 ml 1100 ml Justicifation of Admission Dx: Justifications for Admission: Justification of Admission Dx: N/A PHIL LEWIS MD Oct 01, 2021 08:58
--- NOTE | 2021-10-01 09:35 | PDOC ---
Infectious Disease Note Subjective: Subjective Patient states feels better remains afebrile Vital Signs: Vital Signs Vital Signs Date Time Temp Pulse Resp B/P (MAP) Pulse Ox O2 Delivery O2 Flow Rate FiO2 10/01/21 07:00 98.4 70 16 151/81 (104) 97 Room Air 98.4 Physical Exam: PHYSICAL EXAM GENERAL: The patient is alert, opens eyes, answers a very few questions, very slow in answering questions. HEENT: Normocephalic, atraumatic. Dry mucous membrane. NECK: Supple. No pain. No meningismus. LUNGS: Clear. HEART: S1, S2. ABDOMEN: Soft, obese with PEG tube in place. EXTREMITIES: Keloids present. Left upper extremity swelling, erythema going from the hand up to the shoulder. Warmth, mild tenderness though left arm is flaccid. NEUROLOGIC: Alert, awake, answers a very few questions, slow in answering. PSYCHIATRIC: Calm and cooperative. SKIN: PIV looks clean. GENITOURINARY: No Parish. Medications: Inpatient Meds: Medications reviewed. Labs: Lab Laboratory Tests Test 09/30/21 12:10 09/30/21 18:15 10/01/21 00:32 10/01/21 05:45 Glucose (Fingerstick) 131 mg/dL (70-99) 120 mg/dL (70-99) 114 mg/dL (70-99) White Blood Count 8.3 x10^3/uL (4.0-11.0) Red Blood Count 4.16 x10^6/uL (3.50-5.40) Hemoglobin 11.5 g/dL (12.0-15.5) Hematocrit 35.0 % (36.0-47.0) Mean Corpuscular Volume 84 fL (79-100) Mean Corpuscular Hemoglobin 28 pg (25-35) Mean Corpuscular Hemoglobin Concent 33 g/dL (31-37) Red Cell Distribution Width 14.5 % (11.5-14.5) Platelet Count 290 x10^3/uL (140-400) Neutrophils (%) (Auto) 66 % (31-73) Lymphocytes (%) (Auto) 22 % (24-48) Monocytes (%) (Auto) 7 % (0-9) Eosinophils (%) (Auto) 4 % (0-3) Basophils (%) (Auto) 1 % (0-3) Neutrophils # (Auto) 5.5 x10^3/uL (1.8-7.7) Lymphocytes # (Auto) 1.8 x10^3/uL (1.0-4.8) Monocytes # (Auto) 0.6 x10^3/uL (0.0-1.1) Eosinophils # (Auto) 0.3 x10^3/uL (0.0-0.7) Basophils # (Auto) 0.1 x10^3/uL (0.0-0.2) Sodium Level 143 mmol/L (136-145) Potassium Level 3.4 mmol/L (3.5-5.1) Chloride Level 108 mmol/L (98-107) Carbon Dioxide Level 26 mmol/L (21-32) Anion Gap 9 (6-14) Blood Urea Nitrogen 12 mg/dL (7-20) Creatinine 0.7 mg/dL (0.6-1.0) Estimated GFR (Cockcroft-Gault) 84.0 Glucose Level 109 mg/dL (70-99) Calcium Level 8.5 mg/dL (8.5-10.1) Magnesium Level 2.5 mg/dL (1.8-2.4) Test 10/01/21 07:38 Glucose (Fingerstick) 111 mg/dL (70-99) Objective: Assessment: 1. Fever. 2. Leukocytosis and lactic acidosis. 3. Left upper extremity cellulitis. Doppler negative for DVT 4. Urinary tract infection. 5. Nausea, vomiting. 6. Possible aspiration. 7. History of cerebrovascular accident with aphasia. 8. Diabetes mellitus. 9. assisted resident. 10.Constipation Plan: Plan of Care 1. Continue Zosyn/ Zyvox. 2 Follow up labs and cultures. 3 elevate left upper extremity 4. Continue supportive care. 5. Maintain aspiration precautions ZIA EDMOND MD Oct 01, 2021 09:35
[2021-10-01] MEDS: LINEZOLID 600 MG TABLET PEG SCH ×2 (10:03→20:51)
[2021-10-01] MEDS: ASPIRIN CHEWABLE 81 MG TABLET. PEG SCH (10:03)
[2021-10-01] MEDS: SERTRALINE 25 MG TABLET. PEG SCH (10:03)
[2021-10-01] MEDS: MULTIVITAMINS,THERAPEUTIC 5 ML ORAL LIQUID. PEG SCH (10:03)
[2021-10-01] MEDS: OMEGA-3 FATTY ACIDS/FISH OIL 1,000 MG CAPSULE. PO SCH ×3 (10:03→20:55)
[2021-10-01] MEDS: LOPERAMIDE 2 MG/15 ML ORAL SUSP. PEG SCH (10:04)
[2021-10-01] MEDS: APIXABAN 5 MG TABLET. FT SCH ×2 (10:04→20:50)
[2021-10-01] MEDS: CARVEDILOL 6.25 MG TABLET. PEG SCH ×2 (10:04→16:39)
[2021-10-01 11:00] VITALS: BP 128/58
--- NOTE | 2021-10-01 11:04 | PDOC ---
[employer] PROGRESS NOTE Date of Service DOS: DATE: 10/01/21 TIME: 11:03 Chief Complaint Chief Complaint Old stroke 6 months ago requiring PEG tube Encephalopathy Hemiparesis Sepsis Acute infectious and metabolic encephalopathy Moderate small vessel ischemic change and a lacunar infarct at the right basal ganglia. Acute UTI Prerenal azotemia Lactic acidemia Risk for aspiration History of stroke and residual left hemiparesis History of PEG tube placement Failure to thrive History of Present Illness History of Present Illness 10/01/2021 Patient seen and examined She is watching cartoons on TV Speaks a little more but still very weak/encephalopathic Discussed with RN Chart reviewed Appreciate ID input Discussed with case management 09/30/2021 Patient seen and examined She is resting with no apparent distress Left arm quite edematous compared to the right Discussed with RN Chart reviewed Patient has PEG feeds running at 35 cc an hour (Glucerna) Potassium is low this morning at 2.6 we are going to give her 2 doses of potassium 09/29/2021 Patient seen and examined She is extremely disabled and can barely talk Has PEG feed running Has IV Zosyn hanging Was able to say 1 word Discussed with RN Chart reviewed Vitals/I&O Vitals/I&O: Vital Signs Date Time Temp Pulse Resp B/P (MAP) Pulse Ox O2 Delivery O2 Flow Rate FiO2 10/01/21 10:04 70 151/81 10/01/21 07:00 98.4 16 97 Room Air 98.4 I & O 09/30/21 09/30/21 10/01/21 15:00 23:00 07:00 Intake Total 520 ml 60 ml 1100 ml Balance 520 ml 60 ml 1100 ml Physical Exam Physical Exam: GENERAL: The patient is alert, opens eyes, answers a very few questions, very slow in answering questions. HEENT: Normocephalic, atraumatic. Dry mucous membrane. NECK: Supple. No pain. No meningismus. LUNGS: Clear. HEART: S1, S2. ABDOMEN: Soft, obese with PEG tube in place. EXTREMITIES: Keloids present. Left upper extremity swelling, erythema going from the hand up to the shoulder. Warmth, mild tenderness though left arm is flaccid. NEUROLOGIC: Alert, awake, answers a very few questions, slow in answering. PSYCHIATRIC: Calm and cooperative. SKIN: PIV looks clean. GENITOURINARY: No Parish. General: mild distress, Other (Barely able to talk) Heart: Regular rate Lungs: Clear Abdomen: Normal bowel sounds, Other (Has a clean PEG tube in place) Extremities: Other (2+ edema) Skin: Other (Thin and frail) Labs Labs: Laboratory Tests Test 09/30/21 12:10 09/30/21 18:15 10/01/21 00:32 10/01/21 05:45 Glucose (Fingerstick) 131 mg/dL (70-99) 120 mg/dL (70-99) 114 mg/dL (70-99) White Blood Count 8.3 x10^3/uL (4.0-11.0) Red Blood Count 4.16 x10^6/uL (3.50-5.40) Hemoglobin 11.5 g/dL (12.0-15.5) Hematocrit 35.0 % (36.0-47.0) Mean Corpuscular Volume 84 fL (79-100) Mean Corpuscular Hemoglobin 28 pg (25-35) Mean Corpuscular Hemoglobin Concent 33 g/dL (31-37) Red Cell Distribution Width 14.5 % (11.5-14.5) Platelet Count 290 x10^3/uL (140-400) Neutrophils (%) (Auto) 66 % (31-73) Lymphocytes (%) (Auto) 22 % (24-48) Monocytes (%) (Auto) 7 % (0-9) Eosinophils (%) (Auto) 4 % (0-3) Basophils (%) (Auto) 1 % (0-3) Neutrophils # (Auto) 5.5 x10^3/uL (1.8-7.7) Lymphocytes # (Auto) 1.8 x10^3/uL (1.0-4.8) Monocytes # (Auto) 0.6 x10^3/uL (0.0-1.1) Eosinophils # (Auto) 0.3 x10^3/uL (0.0-0.7) Basophils # (Auto) 0.1 x10^3/uL (0.0-0.2) Sodium Level 143 mmol/L (136-145) Potassium Level 3.4 mmol/L (3.5-5.1) Chloride Level 108 mmol/L (98-107) Carbon Dioxide Level 26 mmol/L (21-32) Anion Gap 9 (6-14) Blood Urea Nitrogen 12 mg/dL (7-20) Creatinine 0.7 mg/dL (0.6-1.0) Estimated GFR (Cockcroft-Gault) 84.0 Glucose Level 109 mg/dL (70-99) Calcium Level 8.5 mg/dL (8.5-10.1) Magnesium Level 2.5 mg/dL (1.8-2.4) Test 10/01/21 07:38 Glucose (Fingerstick) 111 mg/dL (70-99) Assessment and Plan Assessmemt and Plan Problems Medical Problems: (1) Cellulitis of arm, left Status: Acute (2) Sepsis Status: Acute (3) UTI (urinary tract infection) Status: Ac Sepsis Encephalopathy Hemiparesis Recent stroke with PEG placement Acute infectious and metabolic encephalopathy Moderate small vessel ischemic change and a lacunar infarct at the right basal ganglia. Acute UTI Edema Prerenal azotemia Lactic acidemia Risk for aspiration History of stroke and residual left hemiparesis History of PEG tube placement Failure to thrive Plan IV antibiotics (Zosyn and Zyvox per ID) Following cultures Continue PEG feeds Appreciate ID and neurology input Wound care PT OT speech therapy if and when possible Trend labs Home meds DVT prophylaxis IV Protonix Full code Long-term prognosis extremely guarded Hope to discharge back to her long-term care facility soon Per infectious disease please see the following recommendations and we certainly agree and appreciate their input; 1. Fever. 2. Leukocytosis and lactic acidosis. 3. Left upper extremity cellulitis. Doppler negative for DVT 4. Urinary tract infection. 5. Nausea, vomiting. 6. Possible aspiration. 7. History of cerebrovascular accident with aphasia. 8. Diabetes mellitus. 9. long-term resident. 10.Constipation Plan: Plan of Care 1. Continue Zosyn/ Zyvox. 2 Follow up labs and cultures. 3 elevate left upper extremity 4. Continue supportive care. 5. Maintain aspiration precautions Comment Review of Relevant I have reviewed the following items jason (where applicable) has been applied. Medications: Current Medications Medications (Trade) Dose Ordered Sig/Guillermo Route PRN Reason Start Time Stop Time Status Last Admin Dose Admin Potassium Chloride (Klor-Con) 40 meq 1X ONCE PO 09/30/21 13:30 09/30/21 13:31 DC 09/30/21 15:05 Sodium Chloride 1,000 ml @ 75 mls/hr [id number] IV 10/01/21 00:30 10/01/21 00:16 Magnesium Sulfate 50 ml @ 25 mls/hr 1X ONCE IV 10/01/21 00:30 10/01/21 02:29 DC 10/01/21 01:20 Amlodipine Besylate (Norvasc) 5 mg DAILY PEG 10/01/21 09:00 10/01/21 10:04 Aspirin (Aspirin Chewable) 81 mg DAILY PEG 10/01/21 09:00 10/01/21 10:03 Carvedilol (Coreg) 6.25 mg BIDWMEALS PEG 10/01/21 08:00 10/01/21 10:04 Sertraline HCl (Zoloft) 25 mg DAILY PEG 10/01/21 09:00 10/01/21 10:03 Loperamide HCl (Immodium Oral Susp) 2 mg DAILYWBKFT PEG 10/01/21 08:00 10/01/21 10:04 Multivitamins/ Minerals Therapeutic (Centrum Multivit-Mineral Liq) 5 ml DAILY PEG 10/01/21 09:00 10/01/21 10:03 Fish Oil (Fish Oil) 1,000 mg TID PO 10/01/21 09:00 10/01/21 10:03 Apixaban (Eliquis) 5 mg BID FT 10/01/21 09:00 10/01/21 10:04 Info (Anti-Coagulation Monitoring By Pharmacy) 1 each PRN DAILY PRN MC PER PROTOCOL 10/01/21 00:45 10/01/21 02:28 Justifications for Admission Other Justification Sepsis with acute infarct of the right basal ganglia MARIELA HAN III DO Oct 01, 2021 11:04
[2021-10-01 15:00] VITALS: BP 118/57
[2021-10-01 19:00] VITALS: BP 127/75
[2021-10-01] MEDS: ACETAMINOPHEN 325 MG TABLET. PO PRN (20:50)
[2021-10-01] MEDS: LORazepam 0.5 MG TABLET PO PRN (20:54)
[2021-10-01] MEDS ORDERED: ATORVASTATIN CALCIUM 40 MG TABLET. PEG SCH (21:00)
[2021-10-01] MEDS ORDERED: FAMOTIDINE 20 MG TABLET. PEG SCH (21:00)
[2021-10-01] MEDS ORDERED: INSULIN GLARGINE SYRINGE. SQ SCH (21:00)
[2021-10-01 22:42] VITALS: BP 129/70
[2021-10-02 03:00] VITALS: BP 114/63
[2021-10-02] MEDS: PIPERACILLIN/TAZOBACTAM 3.375 GM in IV NORMAL SALINE 50ML 50 ML IV SCH ×2 (05:31→12:16)
[2021-10-02] MEDS: IV 1/2 NORMAL SALINE 1,000 ML IV SCH (05:31)
[2021-10-02 07:00] VITALS: BP 121/64
[2021-10-02 07:00] LABS: CALCIUM 8.4 mg/dL (8.5-10.1); CREATININE 0.7 mg/dL (0.6-1.0); POTASSIUM 3.3 mmol/L (3.5-5.1)
--- NOTE | 2021-10-02 07:56 | PDOC ---
Infectious Disease Note Subjective: Subjective Patient states feels better remains afebrile Upper extremity swelling and redness have improved Vital Signs: Vital Signs Vital Signs Date Time Temp Pulse Resp B/P (MAP) Pulse Ox O2 Delivery O2 Flow Rate FiO2 10/02/21 03:00 97.9 68 17 114/63 (80) 96 Room Air 97.9 Physical Exam: PHYSICAL EXAM GENERAL: The patient is alert, comfortable slow in answering questions. HEENT: Normocephalic, atraumatic. Dry mucous membrane. NECK: Supple. No pain. No meningismus. LUNGS: Clear. HEART: S1, S2. ABDOMEN: Soft, obese with PEG tube in place. EXTREMITIES: Keloids present. Left upper extremity swelling, erythema going from the hand up to the shoulder. Warmth, mild tenderness , improving left arm is flaccid. Appears chronic. Scars intact from previous surgery NEUROLOGIC: Alert, awake, answers a very few questions, slow in answering. PSYCHIATRIC: Calm and cooperative. SKIN: PIV looks clean. GENITOURINARY: No Parish. Medications: Inpatient Meds: Medications reviewed. Labs: Lab Laboratory Tests Test 10/01/21 11:00 10/01/21 11:21 10/01/21 18:46 10/01/21 23:26 SARS-CoV-2 Antigen (Rapid) Negative (NEGATIVE) Glucose (Fingerstick) 127 mg/dL (70-99) 117 mg/dL (70-99) 133 mg/dL (70-99) Test 10/02/21 06:20 Sodium Level 140 mmol/L (136-145) Potassium Level 3.3 mmol/L (3.5-5.1) Chloride Level 106 mmol/L (98-107) Carbon Dioxide Level 25 mmol/L (21-32) Anion Gap 9 (6-14) Blood Urea Nitrogen 10 mg/dL (7-20) Creatinine 0.7 mg/dL (0.6-1.0) Estimated GFR (Cockcroft-Gault) 84.0 Glucose Level 115 mg/dL (70-99) Calcium Level 8.4 mg/dL (8.5-10.1) Objective: Assessment: 1. Fever. Resolved 2. Leukocytosis and lactic acidosis. Resolved 3. Left upper extremity cellulitis. Doppler negative for DVT 4. Urinary tract infection. Cultures polymicrobial organism 5. Nausea, vomiting. Resolved 6. Possible aspiration. Improving 7. History of cerebrovascular accident with aphasia. 8. Diabetes mellitus. 9. snf resident. 10.Constipation Plan: Plan of Care Patient is ready for discharge shelter today per primary team Patient can be discharged on linezolid and Augmentin for 7 days Prescription in chart Elevate left upper extremity Continue supportive care Discussed with ZIA LO MD Oct 02, 2021 07:56
[2021-10-02] MEDS: INSULIN LISPRO 300 UNITS/3 ML VIAL. SQ SCH ×2 (08:00→12:00)
[2021-10-02] MEDS: OMEGA-3 FATTY ACIDS/FISH OIL 1,000 MG CAPSULE. PO SCH ×2 (09:00→14:00)
[2021-10-02] MEDS: MULTIVITAMINS,THERAPEUTIC 5 ML ORAL LIQUID. PEG SCH (09:19)
[2021-10-02] MEDS: LINEZOLID 600 MG TABLET PEG SCH (09:19)
[2021-10-02] MEDS: LOPERAMIDE 2 MG/15 ML ORAL SUSP. PEG SCH (09:19)
[2021-10-02] MEDS: CARVEDILOL 6.25 MG TABLET. PEG SCH (09:19)
[2021-10-02] MEDS: APIXABAN 5 MG TABLET. FT SCH (09:19)
[2021-10-02] MEDS: SERTRALINE 25 MG TABLET. PEG SCH (09:19)
[2021-10-02] MEDS: ASPIRIN CHEWABLE 81 MG TABLET. PEG SCH (09:20)
[2021-10-02 11:00] VITALS: BP 122/79
[2021-10-02] MEDS ORDERED: AMOX1TAB61 PO (11:39)
[2021-10-02] MEDS ORDERED: LINE600T12 PEG (11:39)
--- NOTE | 2021-10-02 11:44 | PDOC3 ---
Discharge Summary Visit Information Date of Admission: Sep 27, 2021 Date of Discharge: Oct 02, 2021 Final Diagnosis 1. Fever. SIRS, sepsis 2. Left upper extremity cellulitis. Doppler negative for DVT 3. Urinary tract infection. Cultures polymicrobial organism 4. Nausea, vomiting. Resolved with possible aspiration on admit 6. History of CVA, with residual aphasia. 7. DM2 8, weakness and debility, lift transfer at baseline, PPS 30% at baseline Problems Medical Problems: (1) Cellulitis of arm, left Status: Acute (2) Sepsis Status: Acute (3) UTI (urinary tract infection) Status: Acute Brief Hospital Course Allergies Allergies Coded Allergies Type Severity Reaction Last Updated Verified codeine Allergy Intermediate 09/27/21 Yes morphine Allergy Intermediate 09/27/21 Yes Vital Signs Vital Signs Date Time Temp Pulse Resp B/P (MAP) Pulse Ox O2 Delivery O2 Flow Rate FiO2 10/02/21 09:20 72 121/64 10/02/21 08:11 Room Air 10/02/21 07:00 97.8 18 94 97.8 Lab Results Laboratory Tests Test 09/30/21 12:10 09/30/21 18:15 10/01/21 00:32 10/01/21 05:45 Glucose (Fingerstick) 131 mg/dL (70-99) 120 mg/dL (70-99) 114 mg/dL (70-99) White Blood Count 8.3 x10^3/uL (4.0-11.0) Red Blood Count 4.16 x10^6/uL (3.50-5.40) Hemoglobin 11.5 g/dL (12.0-15.5) Hematocrit 35.0 % (36.0-47.0) Mean Corpuscular Volume 84 fL (79-100) Mean Corpuscular Hemoglobin 28 pg (25-35) Mean Corpuscular Hemoglobin Concent 33 g/dL (31-37) Red Cell Distribution Width 14.5 % (11.5-14.5) Platelet Count 290 x10^3/uL (140-400) Neutrophils (%) (Auto) 66 % (31-73) Lymphocytes (%) (Auto) 22 % (24-48) Monocytes (%) (Auto) 7 % (0-9) Eosinophils (%) (Auto) 4 % (0-3) Basophils (%) (Auto) 1 % (0-3) Neutrophils # (Auto) 5.5 x10^3/uL (1.8-7.7) Lymphocytes # (Auto) 1.8 x10^3/uL (1.0-4.8) Monocytes # (Auto) 0.6 x10^3/uL (0.0-1.1) Eosinophils # (Auto) 0.3 x10^3/uL (0.0-0.7) Basophils # (Auto) 0.1 x10^3/uL (0.0-0.2) Sodium Level 143 mmol/L (136-145) Potassium Level 3.4 mmol/L (3.5-5.1) Chloride Level 108 mmol/L (98-107) Carbon Dioxide Level 26 mmol/L (21-32) Anion Gap 9 (6-14) Blood Urea Nitrogen 12 mg/dL (7-20) Creatinine 0.7 mg/dL (0.6-1.0) Estimated GFR (Cockcroft-Gault) 84.0 Glucose Level 109 mg/dL (70-99) Calcium Level 8.5 mg/dL (8.5-10.1) Magnesium Level 2.5 mg/dL (1.8-2.4) Test 10/01/21 07:38 10/01/21 11:00 10/01/21 11:21 10/01/21 18:46 Glucose (Fingerstick) 111 mg/dL (70-99) 127 mg/dL (70-99) 117 mg/dL (70-99) SARS-CoV-2 RNA (GODFREY) Negative (Negative) SARS-CoV-2 Antigen (Rapid) Negative (NEGATIVE) Test 10/01/21 23:26 10/02/21 06:20 Glucose (Fingerstick) 133 mg/dL (70-99) Sodium Level 140 mmol/L (136-145) Potassium Level 3.3 mmol/L (3.5-5.1) Chloride Level 106 mmol/L (98-107) Carbon Dioxide Level 25 mmol/L (21-32) Anion Gap 9 (6-14) Blood Urea Nitrogen 10 mg/dL (7-20) Creatinine 0.7 mg/dL (0.6-1.0) Estimated GFR (Cockcroft-Gault) 84.0 Glucose Level 115 mg/dL (70-99) Calcium Level 8.4 mg/dL (8.5-10.1) Laboratory Tests Test 10/01/21 18:46 10/01/21 23:26 10/02/21 06:20 Glucose (Fingerstick) 117 mg/dL (70-99) 133 mg/dL (70-99) Sodium Level 140 mmol/L (136-145) Potassium Level 3.3 mmol/L (3.5-5.1) Chloride Level 106 mmol/L (98-107) Carbon Dioxide Level 25 mmol/L (21-32) Anion Gap 9 (6-14) Blood Urea Nitrogen 10 mg/dL (7-20) Creatinine 0.7 mg/dL (0.6-1.0) Estimated GFR (Cockcroft-Gault) 84.0 Glucose Level 115 mg/dL (70-99) Calcium Level 8.4 mg/dL (8.5-10.1) Brief Hospital Course Ms. Farah is a 66 old history of CVA with aphasia, left-sided hemiparesi s, correction resident admit wth fever, vomiting, possible aspiration. UTI, and cellulitis found, aspiration was not pneumonia vanc and zosyn started neuro and ID consult, transition to Zyvox and augmentin Discharge Information Condition at Discharge: Improved Follow Up: Weeks Disposition/Orders: D/C to Another Facility Scheduled Amlodipine Besylate (Amlodipine Besylate) 5 Mg Tablet, 5 MG PEG DAILY for htn, (Reported) Entered as Reported by: NAHOMY ALLEN RN on 09/28/21454 Last Action: Continued on 10/01/2131 by BEST TRIPLETT Amoxicillin/Potassium Clav (Augmentin 875-125 Tablet) 1 Each Tablet, 1 TAB PO BID for UTI for 7 Days, #14 Ref 0 Prescribed by: BROOKS FRAZIER on 10/02/21 1139 Apixaban (Eliquis) 5 Mg Tablet, 5 MG PEG BID for DVT , (Reported) Entered as Reported by: NAHOMY ALLEN RN on 09/28/21454 Last Action: Continued on 10/01/2131 by BEST TRIPLETT Aspirin (Aspirin) 81 Mg Tab.chew, 1 TAB PEG DAILY for heart health, #30 Ref 3 (Reported) Entered as Reported by: NAHOMY ALLEN RN on 09/28/21454 Last Action: Continued on 10/01/2131 by BEST TRIPLETT Atorvastatin Calcium (Atorvastatin Calcium) 40 Mg Tablet, 1 TAB PEG DAILY for HLD, #30 Ref 5 (Reported) Entered as Reported by: NAHOMY ALLEN RN on 09/28/21454 Last Action: Continued on 10/01/2131 by BEST TRIPLETT Carvedilol (Carvedilol ) 6.25 Mg Tablet, 6.25 MG PEG BIDWMEALS for CARDIAC, (Reported) Entered as Reported by: NAHOMY ALLEN RN on 09/28/21454 Last Action: Continued on 10/01/2131 by BEST TRIPLETT Famotidine (Pepcid) 20 Mg Tablet, 20 MG PEG HS for acid reflux, (Reported) Entered as Reported by: NAHOMY ALLEN RN on 09/28/21454 Last Action: Continued on 10/01/2131 by BEST TRIPLETT Insulin Glargine,Hum.rec.anlog (Lantus) 100 Unit/1 Ml Vial, 20 UNIT SQ QHS for dm, (Reported) Entered as Reported by: NAHOMY ALLEN RN on 09/28/21454 Last Action: Continued on 10/01/2131 by BEST TRIPLETT Insulin Regular, Human (Novolin R Flexpen) 100 Unit/1 Ml Insuln.pen, 16 UNIT SQ TID for dm, (Reported) Entered as Reported by: NAHOMY ALLEN RN on 09/28/21454 Last Action: Converted on 10/01/2131 by BEST TRIPLETT Linezolid (Zyvox) 600 Mg Tablet, 600 MG PEG BID for cellulitis, #14 Prescribed by: BROOKS FRAZIER on 10/02/21 1139 Loperamide Hcl (Loperamide) 2 Mg Tablet, 2 MG PEG DAILYWBKFT for loose stools, (Reported) Entered as Reported by: NAHOMY ALLEN RN on 09/28/21454 Last Action: Converted on 10/01/2131 by BEST TRIPLETT Multivitamin (Multiple Vitamins) 1 Each Tablet, 1 TAB PEG DAILY for supplement for 30 Days, #30 Ref 0 (Reported) Entered as Reported by: NAHOMY ALLEN RN on 09/28/21454 Last Action: Converted on 10/01/2131 by BEST TRIPLETT [place]-3 Fatty Acids ([place]-3) 1,000 Mg Capsule, 1 CAP PEG TID for supplement for 30 Days, #90 Ref 0 (Reported) Entered as Reported by: NAHOMY ALLEN RN on 09/28/21454 Last Action: Converted on 10/01/2131 by BEST TRIPLETT Sertraline Hcl (Zoloft) 25 Mg Tablet, 1 TAB PEG DAILY for depression, #30 Ref 2 (Reported) Entered as Reported by: NAHOMY ALLEN RN on 09/28/21454 Last Action: Continued on 10/01/2131 by BEST TRIPLETT Patient Instructions Patient Instructions face to face 34 min Justicifation of Admission Dx: Justifications for Admission: Justification of Admission Dx: N/A BROOKS FRAZIER MD Oct 02, 2021 11:44
--- NOTE | 2021-10-02 11:52 | SNU/HH DC ---
DISCHARGE ORDERS DISCHARGE INFORMATION: DISCHARGE DATE: Oct 02, 2021 FINAL DIAGNOSIS UTI cellulitis prior stroke, marked weakness and dysphagia Problems Medical Problems: (1) Cellulitis of arm, left Status: Acute (2) Sepsis Status: Acute (3) UTI (urinary tract infection) Status: Acute CONDITION ON DISCHARGE: Stable CODE STATUS: Code Status: Full RETIREMENT: SNF STAY <30 DAYS: No ([facility] ) POST DISCHARGE ORDERS: ACTIVITY ORDERS: Resume previous activity, Activity as tolerated WEIGHT BEARING STATUS: As tolerated DIET AFTER DISCHARGE: Regular (dysphagia as before) CHECKS AFTER DISCHARGE: COMMENTS: per priro schedule TREATMENT/EQUIPMENT ORDERS: ADAPTIVE EQUIPMENT NEEDED: Wheelchair (and lift) DISCHARGE MEDICATIONS: Home Meds Active Scripts Amoxicillin/Potassium Clav (AUGMENTIN 875-125 TABLET) 1 Each Tablet, 1 TAB PO BID for UTI for 7 Days, #14 TAB 0 Refills Prov:BROOKS FRAZIER MD 10/02/21 Linezolid (ZYVOX) 600 Mg Tablet, 600 MG PEG BID for cellulitis, #14 TAB Prov:BROOKS FRAZIER MD 10/02/21 Reported Medications Sertraline Hcl (ZOLOFT) 25 Mg Tablet, 1 TAB PEG DAILY for depression, #30 TAB 2 Refills 09/28/21 Famotidine (PEPCID) 20 Mg Tablet, 20 MG PEG HS for acid reflux, TAB 09/28/21 Insulin Regular, Human (Novolin R Flexpen) 100 Unit/1 Ml Insuln.pen, 16 UNIT SQ TID for dm, EACH 09/28/21 Multivitamin (MULTIPLE VITAMINS) 1 Each Tablet, 1 TAB PEG DAILY for supplement for 30 Days, #30 TAB 0 Refills 09/28/21 Loperamide Hcl (LOPERAMIDE) 2 Mg Tablet, 2 MG PEG DAILYWBKFT for loose stools, TAB 09/28/21 Insulin Glargine,Hum.rec.anlog (LANTUS) 100 Unit/1 Ml Vial, 20 UNIT SQ QHS for dm, EACH 09/28/21 [place]-3 Fatty Acids ([place]-3) 1,000 Mg Capsule, 1 CAP PEG TID for supplement for 30 Days, #90 CAP 0 Refills 09/28/21 Apixaban (ELIQUIS) 5 Mg Tablet, 5 MG PEG BID for DVT , TAB 09/28/21 Carvedilol (CARVEDILOL ) 6.25 Mg Tablet, 6.25 MG PEG BIDWMEALS for CARDIAC, TAB 09/28/21 Atorvastatin Calcium (ATORVASTATIN CALCIUM) 40 Mg Tablet, 1 TAB PEG DAILY for HLD, #30 TAB 5 Refills 09/28/21 Aspirin (ASPIRIN) 81 Mg Tab.chew, 1 TAB PEG DAILY for heart health, #30 TAB 3 Refills 09/28/21 Amlodipine Besylate (AMLODIPINE BESYLATE) 5 Mg Tablet, 5 MG PEG DAILY for htn, TAB 09/28/21 BROOKS FRAZIER MD Oct 02, 2021 11:52
[2021-10-02] MEDS ORDERED: POTASSIUM CHLORIDE 20 MEQ TABLET.ER. PO ONE (12:00)
[2021-10-02 15:00] VITALS: BP 117/61
--- NOTE | 2021-10-02 16:40 | NUR ---
pt was discharged back to [facility] today, was picked up at 1626 by ann. meds were send electronically to pharm and report was given to nurse Colette at [facility]. Margarito Dallas RN
== END 2021-10-02 16:26 | DRG 871 ==
LOC: ER 19:34 → 5 SOUTH 22:14
PROVIDERS: ADMIT Internal Medicine; ATTEND Internal Medicine
DX: A41.9 Sepsis, unspecified organism (principal); G93.41 Metabolic encephalopathy; I69.354 Hemiplegia and hemiparesis following cerebral infarction affecting left non-dominant side; L03.114 Cellulitis of left upper limb; E11.9 Type 2 diabetes mellitus without complications; E78.5 Hyperlipidemia, unspecified; E87.6 Hypokalemia; I10 Essential (primary) hypertension; I69.320 Aphasia following cerebral infarction; K59.00 Constipation, unspecified; M47.9 Spondylosis, unspecified; N30.90 Cystitis, unspecified without hematuria; R13.10 Dysphagia, unspecified; R62.7 Adult failure to thrive; Z74.01 Bed confinement status; Z86.718 Personal history of other venous thrombosis and embolism; Z93.1 Gastrostomy status; K21.9 Gastro-esophageal reflux disease without esophagitis; M47.816 Spondylosis without myelopathy or radiculopathy, lumbar region; Z88.8 Allergy status to other drugs, medicaments and biological substances; Z68.33 Body mass index [BMI] 33.0-33.9, adult
CPT/HCPCS: 36415; 70450; 71045; 73030; 73060; 73070; 73090; 73120; 80048; 80053; 80307; 80329; 81001; 82010; 82550; 82962; 83605; 83735; 83880; 84100; 84484; 85007; 85025; 85610; 85730; 87040; 87086; 87426; 93005; 93971; 96365; 96368; G0480; J1650; J1815; J2543; J3370; J3475; J3490; J7030; J7040; U0003; U0005; 99285-25; G0378

== ENCOUNTER 2022-01-30 11:30 | Emergency (ER) | payer MEDICARE ==
[~2022-01-30] VITALS: Ht 170.2 cm; Wt 113.6 kg
[~2022-01-30 11:30] MED LIST: AMLO-186 PEG; AMOX1TAB61 PO; APIX5TAB PEG; ASPI-630 PEG; ATOR40TA59 PEG; CARV6.2511 PEG; FAMO-63 PEG; INSU100I49 SQ; INSU100V8 SQ; LINE600T12 PEG; LOPE2TAB27 PEG; MULT-121 PEG; OMEG10005 PEG; POTA20TA40 PEG; SERT25TA PEG
--- NOTE | 2022-01-30 11:32 | PHYS DOC ---
Past Medical History Additional Past Medical Histor: SPONDYLOSIS, DYSPHAGIA, APHASIA, HEMIPLEGIA, HEMIPARESIS, VENOUS THROMBOSIS Past Surgical History: Other Additional Past Surgical Histo: G TUBE Smoking Status: Unknown if ever smoked Alcohol Use: None General Adult EDM: Chief Complaint: GTUBE REPLACEMENT/MALFUNCTION HPI: HPI: Patient is a 67 year old female who presents from her intermediate facility for replacement of her G-tube. At some point time last night or early this morning her G-tube became dislodged, the entire tube and bulb were out. The pat ient is not sure when this occurred. She has no reported abdominal pain or discomfort. No bleeding from the G-tube site. She has had this G-tube since early 2020 after he sustained a severe CVA with dysphagia. The patient has no specific complaints at present. He denies cough, dyspnea, nausea or vomiting. Review of Systems: Review of Systems: Review of systems as per HPI Heart Score: C/O Chest Pain: N/A Risk Factors: Risk Factors: DM, Current or recent (<one month) smoker, HTN, HLP, family history of CAD, obesity. Risk Scores: Score 0 - 3: 2.5% MACE over next 6 weeks - Discharge Home Score 4 - 6: 20.3% MACE over next 6 weeks - Admit for Clinical Observation Score 7 - 10: 72.7% MACE over next 6 weeks - Early Invasive Strategies Allergies: Allergies: Allergies Coded Allergies Type Severity Reaction Last Updated Verified codeine Allergy Intermediate 11/13/21 Yes morphine Allergy Intermediate 11/13/21 Yes I S O L A T I O N *CONTACT* Allergy Unknown 11/16/21 Yes Physical Exam: PE: Constitutional: Chronically ill-appearing female, resting comfortably on the ED gurney. Appears older than stated age HENT: Normocephalic, atraumatic, oropharynx is patent, mucous membranes tach Eyes: Sclera anicteric Neck: Trachea is midline Cardiovascular:Heart rate regular rhythm, +2 radial and +2 dorsalis pedis pulses bilaterally Lungs & Thorax: Bilateral breath sounds clear to auscultation [] Abdomen: Abdomen is obese, soft, nondistended, no fluid wave, nontender to palpation. Normal bowel sounds. There is a stoma on the left upper quadrant. This is clean, dry, intact, no surrounding warmth erythema. No bleeding. Skin: Warm, dry, no erythema, no rash. [] Back: No tenderness, no CVA tenderness. [] Extremities: No tenderness, no cyanosis, no clubbing, ROM intact, no edema. [] Neurologic: She is awake, alert, oriented x3. Diffuse generalized weakness. Significant dysarthria, unchanged from baseline. Psychologic: Affect is appropriate for situation and chronic clinical condition. EKG: EKG: [] Radiology/Procedures: Radiology/Procedures: IMAGING REPORT Signed PATIENT: CONRADO LAWSON ACCOUNT: [id number] : 1955 LOCATION: ER AGE: 67 SEX: F EXAM STATUS: REG ER ORD. PHYSICIAN: BERONICA KIM DO REASON: G tube replacement/confirmation PROCEDURE: KUB XR ABDOMEN 1V Clinical Indication: Reason: G tube replacement/confirmation / Spl. Instructions: / History: Comparison: CT chest abdomen and pelvis with contrast November 12, 2021. Findings: The gastrostomy tube has been injected with 50 mL of Omnipaque 300 contrast by the technologist. Contrast partially opacifies the stomach. Lap band is in stable position. There is no extravasation of contrast. No obvious opacity in the lung bases. There is a large gallstone. There are diverticula of the left colon. Right lateral abdomen is excluded. No evidence of bowel obstruction. IMPRESSION: Gastrostomy tube is in appropriate position. Electronically signed by: Karsten Pike MD (01/30/2022 12:58 PM) [id number] DICTATED and SIGNED BY: KARSTEN PIKE MD DATE: 01/30/22 [id number] 0 Course & Med Decision Making: Course & Med Decision Making Pertinent Labs and Imaging studies reviewed. (See chart for details) I personally replaced the G-tube without difficulty. Appropriate positioning and placement is confirmed with x-ray imaging. There is no current indication for further invasive exams, imaging or admission at this time based on current clinical presentation. The patient will be discharged back to her intermediate facility. Jarad Disclaimer: Jarad Disclaimer: This electronic medical record was generated, in whole or in part, using a voice recognition dictation system. Departure Departure Impression: Primary Impression: Gastrostomy tube in place Additional Impression: Status post gastrostomy tube placement, follow-up exam Disposition: [facility] Condition: STABLE Referrals: LACEY WEBB MD (PCP) Patient Instructions: Gastrostomy Tube, Adult Additional Instructions: Your gastrostomy tube was replaced without difficulty. It appears to be in neelima ropriate position within your stomach. Please keep the area around the tube clean and dry. Return to the ER for temperature 100.4 or higher, severe abdominal pain, vomiting, if you notice any signs of yellow or green drainage around your tube site or for any other concerns. Please follow-up with your primary care physicians and your surgeons as previously scheduled. BERONICA KIM DO Jan 30, 2022 11:32
[2022-01-30] MEDS ORDERED: IOHEXOL 300 MG/ML 50 ML VIAL. IJ ONE (12:45)
[2022-01-30] MEDS ORDERED: CONTRAST GIVEN. MC PRN (12:45)
--- NOTE | 2022-01-30 13:00 | RAD ---
XR ABDOMEN 1V Clinical Indication: Reason: G tube replacement/confirmation / Spl. Instructions: / History: Comparison: CT chest abdomen and pelvis with contrast November 12, 2021. Findings: The gastrostomy tube has been injected with 50 mL of Omnipaque 300 contrast by the technologist. Cont rast partially opacifies the stomach. Lap band is in stable position. There is no extravasation of co ntrast. No obvious opacity in the lung bases. There is a large gallstone. There are diverticula of th e left colon. Right lateral abdomen is excluded. No evidence of bowel obstruction. IMPRESSION: Gastrostomy tube is in appropriate position. Electronically signed by: Karsten Pike MD (01/30/2022 12:58 PM) [id number]
[2022-01-30 17:53] VITALS: BP 107/62
== END 2022-01-30 17:53 ==
LOC: ER 11:30
DX: K94.23 Gastrostomy malfunction (principal); Z86.73 Personal history of transient ischemic attack (TIA), and cerebral infarction without residual deficits; Z88.5 Allergy status to narcotic agent; Z91.041 Radiographic dye allergy status; Y83.8 Other surgical procedures as the cause of abnormal reaction of the patient, or of later complication, without mention of misadventure at the time of the procedure; Y92.89 Other specified places as the place of occurrence of the external cause
CPT/HCPCS: 43762; 74018; 99284; Q9967